=== PATIENT | male | born 1950 | race Caucasian/White ===

== ENCOUNTER 2020-05-01 12:05 | Emergency (ER) | payer MEDICARE, SELFPAY ==
--- NOTE | ~2020-05-01 | XR_ITS ---
EXAMINATION: XR finger 5th LT min 2V DATE: 05/01/2020 12:50 INDICATION: Laceration to the distal left fifth digit TECHNIQUE: Dorsal palmar, lateral and 2 oblique views of the left fifth digit were obtained COMPARISON: None FINDINGS: Alignment is normal. No fracture. Deep laceration at the distal phalanx of the left fifth digit. No e vident radiopaque foreign bodies although evaluation is minimally limited by superimposed bandaging m aterial. 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 IMPRESSION: 1. No acute osseous abnormality or evident radiopaque foreign bodies. Reviewed, dictated and finalized at location A.
[2020-05-01 12:10] VITALS: BP 146/100; PULSE 82; RESP 18; TEMP 36.4; O2SAT 100
[2020-05-01] MEDS: ceFAZolin SODIUM 1 GM VIAL IM (12:45)
[2020-05-01] MEDS: TETANUS,DIPHTHERIA,AC PERTUSSIS ADULT (0.5 ML) BOOSTRIX IM (12:45)
[2020-05-01] MEDS: LIDOCAINE HCL 1% LOCAL INJ 20 ML VIAL (12:45)
--- NOTE | 2020-05-01 13:33 | PC.NURSE ---
MICHAEL DIA AT BEDSIDE TO NUMB UP PT FINGER.
--- NOTE | 2020-05-01 14:37 | ED.WOUNDLAC ---
HPI - Wound/Laceration General Chief Complaint: Wound/Laceration <ELIESER Patrick Last Filed: 05/01/20 16:17> Stated Complaint: Left Hand Laceration <ELIESER Patrick Last Filed: 05/01/20 16:17> Time Seen by Provider: 05/01/20 12:09 <ELIESER Patrick Last Filed: 05/01/20 16:17> Source: patient <Mikael Church PA-C - Last Filed: 05/01/20 16:17> Mode of arrival: ambulatory <ELIESER Patrick Last Filed: 05/01/20 16:17> Limitations: no limitations <ELIESER Patrick Last Filed: 05/01/20 16:17> History of Present Illness HPI narrative: Patient is a 69-year-old male who presents with injury to the left fifth digit noting laceration that occurred just prior to arrival after having the finger caught in a motor that he was working on. Patient notes moderate aching pain worse with touch and activity with tingling. Patient is unsure as to tetanus status. Patient presents immediately after the injury. Patient has not had anything for pain <ELIESER Patrick Last Filed: 05/01/20 16:17> Related Data Home Medications: Home Medications Medication Instructions Recorded Confirmed aspirin 81 mg tablet,delayed 81 mg PO DAILY 08/08/19 04/10/20 release cetirizine 10 mg tablet 10 mg PO DAILY PRN tablet 08/08/19 04/10/20 lancets #50 each 08/08/19 04/10/20 loperamide 2 mg tablet 2 mg PO Q4H PRN 08/08/19 04/10/20 multivitamin 1 tablet PO DAILY 08/08/19 04/10/20 tramadol 50 mg tablet 50 mg PO Q6H PRN 08/08/19 04/10/20 vit C 250 mg-E 200 unit-zinc 40 1 tablet PO BID 08/08/19 04/10/20 mg-copper 1 [id number] capsule <ELIESER Patrick Last Filed: 05/01/20 16:17> Allergies/Adverse Reactions: Allergies Allergy/AdvReac Type Severity Reaction Status Date / Time No Known Allergies Allergy Verified 04/10/20 13:14 <Mikael Church PA-C - Last Filed: 05/01/20 16:17> Review of Systems Review of Systems: All systems reviewed & are unremarkable except as noted in HPI and below <Mikael Chruch PA-C - Last Filed: 05/01/20 16:17> [facility] Past Medical History Medical History: Medical History Bilateral exudative age-related macular degeneration Left ear impacted cerumen <Mikael Church PA-C - Last Filed: 05/01/20 16:17> Surgical History Surgical History: Surgical History History of elbow surgery History of left inguinal hernia repair right <Mikael Church PA-C - Last Filed: 05/01/20 16:17> Social History Social History: Social History Smoking status: Never smoker Second hand tobacco smoke exposure: No Alcohol intake: current Drinks per week: 4 Substance use: never Substance use type: does not use Additional occupation/education comments: owns business Gender identity (if verbalized by the patient): Male <Mikael Church PA-C - Last Filed: 05/01/20 16:17> Exam Narrative: Exam Narrative: GENERAL: Well-appearing, well-nourished, and in no acute distress. HEAD: Normocephalic, atraumatic. EYES: PERRLA and EOMI. ENT: Nares clear, no rhinorrhea or epistaxis. Mucous membranes moist. CHEST: Clear to auscultation. No respiratory distress. No wheezes rales or rhonchi HEART: Regular rate and rhythm. No murmur heard. EXTREMITIES: Normal range of motion. No edema. Patient with irregular laceration into the soft tissues and muscle involving the left pinky digit distal phalanx with considerable damage to the palmar tissues also involving the nailbed SKIN: Warm, dry, no rash. NEURO: No focal deficits. Alert and oriented x3. Neurovascularly intact. Capillary refill less than 2 seconds PSYCH: Normal mood and affect. <Mikael Church PA-C - Last Filed: 05/01/20 16:17> Course Course Emergency Course:
[2020-05-01 14:39] VITALS: BP 154/89; PULSE 82; RESP 18; O2SAT 100
--- NOTE | 2020-05-01 14:39 | PC.NURSE ---
ODILON DIA COMPLETED SUTURES W/ PT AT THIS TIME, PT INFORMED NOT TO LEAVE ED, PA WILL BE MAKING CALLS FOR PT F/U. PT VERBALIZED UNDERSTANDING, AWAITING FURTHER INSTRUCTIONS FROM ODILON.
--- NOTE | 2020-05-01 16:16 | PC.NURSE ---
VERBAL ORDER FOR X1 COP[place]AND [id number] PO STAT.
[2020-05-01 16:34] VITALS: BP 154/75; PULSE 78; RESP 18; O2SAT 100
== END 2020-05-01 16:35 | disposition home or self-care (01) ==
PROVIDERS: Emergency Provider General Practice; PCP Family Medicine
DX: S61.217A Laceration without foreign body of left little finger without damage to nail, initial encounter (principal); W31.9XXA Contact with unspecified machinery, initial encounter; Z23 Encounter for immunization
CPT/HCPCS: 12002; 73140; 90471; 90715; 96372; 99283; A9270; J0690

== ENCOUNTER 2020-06-06 13:42 | Emergency (ER) | payer MEDICARE, SELFPAY ==
--- NOTE | ~2020-06-06 | XR_ITS ---
EXAMINATION: XR finger 2nd LT min 2V EXAM DATE: 06/06/2020 14:10 INDICATION: Left hand laceration, soft tissue injury. TECHNIQUE: Left 2nd finger frontal, lateral and oblique projections obtained and reviewed. There i s no prior study for comparison. FINDINGS: Acute open posttraumatic fracture through the left 2nd tuft, with large laceration identif ied and overlying bandage. Mild posterior displacement. Aside from the bandage, no radiopaque foreign bodies identified. No other fractures. IMPRESSION: Acute open left 2nd tuft fracture. Reviewed, dictated and finalized at location A.
[2020-06-06 13:44] VITALS: BP 149/116; PULSE 88; RESP 16; TEMP 35.9; O2SAT 99
--- NOTE | 2020-06-06 14:00 | ED.WOUNDLAC ---
HPI - Wound/Laceration General Chief Complaint: Wound/Laceration Stated Complaint: left index finger injury Time Seen by Provider: 06/06/20 13:52 Source: patient Mode of arrival: ambulatory Limitations: no limitations History of Present Illness HPI narrative: This is a 69-year-old male that presents emergency department for injury to left second finger sustained just prior to arrival. Reports he was working on an outside motor and sustained a laceration to the finger. Reports he is up-to-date on tetanus. Denies decreased range of motion or numbness. Related Data Home Medications Medication Instructions Recorded Confirmed aspirin 81 mg tablet,delayed 81 mg PO DAILY 08/08/19 04/10/20 release cetirizine 10 mg tablet 10 mg PO DAILY PRN tablet 08/08/19 04/10/20 lancets #50 each 08/08/19 04/10/20 loperamide 2 mg tablet 2 mg PO Q4H PRN 08/08/19 04/10/20 multivitamin 1 tablet PO DAILY 08/08/19 04/10/20 tramadol 50 mg tablet 50 mg PO Q6H PRN 08/08/19 04/10/20 vit C 250 mg-E 200 unit-zinc 40 1 tablet PO BID 08/08/19 04/10/20 mg-copper 1 [id number] capsule Allergies Allergy/AdvReac Type Severity Reaction Status Date / Time No Known Allergies Allergy Verified 05/22/20 11:03 Review of Systems Review of Systems: Narrative: CONSTITUTIONAL: Denies fever SKIN: Reports laceration MUSCULOSKELETAL: Denies joint pain NEUROLOGIC: Denies numbness All systems reviewed & are unremarkable except as noted in HPI and below PMFSH Social History Social History Smoking status: Never smoker Second hand tobacco smoke exposure: No Alcohol intake: current Drinks per week: 4 Substance use: never Substance use type: does not use Additional occupation/education comments: owns business Gender identity (if verbalized by the patient): Male Exam Narrative: Exam Narrative: GENERAL: Well-appearing, well-nourished, and in no acute distress. HEAD: Normocephalic, atraumatic. EYES: EOMI. EXTREMITIES: Normal range of motion. No edema. Left second finger with 1.5 cm linear laceration into subcutaneous tissue over the distal phalanx. The radial side of the nailbed has been avulsed SKIN: Warm, dry, no rash. NEURO: No focal deficits. Alert and oriented x3. PSYCH: Normal mood and affect Course Consultations Consultation #1: Spoke with Dr. Villavicencio about patient work-up will follow-up in clinic. Date: 06/06/20 Time: 15:00 Vital Signs Vital signs: Vital Signs Temperature 96.6 F L 06/06/20 13:44 Pulse Rate 88 06/06/20 13:44 Respiratory Rate 16 06/06/20 13:44 Blood Pressure 149/116 H 06/06/20 13:44 Pulse Oximetry 99 06/06/20 13:44 Temperature 96.6 F L 06/06/20 13:44 Pulse Rate 88 06/06/20 13:44 Respiratory Rate 16 06/06/20 13:44 Blood Pressure 149/116 H 06/06/20 13:44 Pulse Oximetry 99 06/06/20 13:44 Procedures Laceration Laceration 1: Date: 06/06/20 Time: 15:27 Site: hand Side (If applicable): left Size (cm): 1.5 Description: linear and contaminated Depth: simple, single layer Local Anesthetic: lidocaine 1% Amount of anesthesia used (mL): 5 Pre-repair: irrigated extensively ====== Skin Level ====== Skin layer closed with: nylon Size (cm): 4-0 Number of sutures: 2 Technique: simple, interrupted ====== Subcutaneous Layer ====== Subcutaneous layer closed with: chromic gut (suture through nail to hold in place) Size: 4-0 Number of sutures: 1 ====== Muscle Layer ====== ====== Tendon Layer ====== Nerve Block Nerve Block 1: Nerve block date: 06/06/20 Nerve block time: 15:28 Local Anesthetic: lidocaine 1% Amount of anesthesia used (mL): 5 Side: left Nerve Blocks: digital Procedure Successful: Yes Patient Tolerated Procedure: well and no complicati
[2020-06-06] MEDS: ceFAZolin SODIUM 1 GM VIAL IM (14:39)
[2020-06-06] MEDS: LIDOCAINE HCL 1% LOCAL INJ 20 ML VIAL (14:39)
[2020-06-06 15:38] VITALS: BP 134/69; PULSE 75; RESP 16; O2SAT 100
== END 2020-06-06 15:39 | disposition home or self-care (01) ==
PROVIDERS: Emergency Provider Emergency Medicine; PCP Family Medicine
DX: S62.631B Displaced fracture of distal phalanx of left index finger, initial encounter for open fracture (principal); Z79.82 Long term (current) use of aspirin; W26.8XXA Contact with other sharp object(s), not elsewhere classified, initial encounter
CPT/HCPCS: 12041; 29130; 73140; 96372; 99284; J0690

== ENCOUNTER 2020-08-01 11:21 | Emergency (ER) | payer MEDICARE, SELFPAY ==
--- NOTE | ~2020-08-01 | XR_ITS ---
XR chest 1V portable DATE: 08/01/2020 12:10 INDICATION: Chest pain, difficulty breathing TECHNIQUE: 2 portable AP chest views on 08/01/2020 at 1210 hours COMPARISON: None FINDINGS: Heart size is likely within normal range, not optimally evaluated on AP projection because of magnification. Probable calcified pulmonary granuloma, right upper lobe. No pulmonary consolidation is evident. Mini mal atelectasis is suggested at the lung bases. No pleural effusion or pulmonary vascular congestion or pneumothorax. IMPRESSION: Limited portable examination; minimal atelectasis is suggested at the lung bases Reviewed, dictated and finalized at location A. [facility] IMPRESSION: Limited portable examination; minimal atelectasis is suggested at t he lung bases
[2020-08-01 11:30] VITALS: BP 127/117; PULSE 67; RESP 18; TEMP 36.8; O2SAT 100
--- NOTE | 2020-08-01 11:51 | ED.GENADULT ---
HPI - General Adult General Chief complaint: Fever Stated complaint: temp 99.9/st/fatigue Time Seen by Provider: 08/01/20 11:23 Source: patient Mode of arrival: ambulatory Limitations: no limitations History of Present Illness HPI narrative: Patient is a 70-year-old male who presents with runny nose congestion and fever that began over the last 24 hours denies sick contacts has not taken anything for his symptoms presents in no distress Related Data Home Medications Medication Instructions Recorded Confirmed aspirin 81 mg tablet,delayed 81 mg PO DAILY 08/08/19 04/10/20 release cetirizine 10 mg tablet 10 mg PO DAILY PRN tablet 08/08/19 04/10/20 lancets #50 each 08/08/19 04/10/20 loperamide 2 mg tablet 2 mg PO Q4H PRN 08/08/19 04/10/20 multivitamin 1 tablet PO DAILY 08/08/19 04/10/20 tramadol 50 mg tablet 50 mg PO Q6H PRN 08/08/19 04/10/20 vit C 250 mg-E 200 unit-zinc 40 1 tablet PO BID 08/08/19 04/10/20 mg-copper 1 [id number] capsule Allergies Allergy/AdvReac Type Severity Reaction Status Date / Time No Known Allergies Allergy Verified 05/22/20 11:03 Review of Systems Review of Systems: All systems reviewed & are unremarkable except as noted in HPI and below PMFSH Past Medical History Medical History (Updated 08/01/20 @ 14:15 by Mikael Church PA-C) Bilateral exudative age-related macular degeneration Left ear impacted cerumen Surgical History Surgical History History of elbow surgery History of left inguinal hernia repair right Family History Family History Mother Diabetes mellitus Family history of cardiovascular disease Sibling Family history of cardiovascular disease Father Family history of primary malignant neoplasm of liver Social History Social History Smoking status: Never smoker Second hand tobacco smoke exposure: No Alcohol intake: current Drinks per week: 4 Substance use: never Substance use type: does not use Additional occupation/education comments: owns business Gender identity (if verbalized by the patient): Male Exam Narrative: Exam Narrative: GENERAL: Well-appearing, well-nourished, and in no acute distress. HEAD: Normocephalic, atraumatic. EYES: PERRLA and EOMI. ENT: Nares clear, no rhinorrhea or epistaxis. Mucous membranes moist. Oropharynx without tonsillar hypertrophy exudate or other lesions. NECK: Supple. No adenopathy or masses. CHEST: Clear to auscultation. No respiratory distress. No wheezes rales or rhonchi HEART: Regular rate and rhythm. No murmur heard. Normal peripheral pulses. ABDOMEN: Soft, mild left lower quadrant tenderness to palpation, nondistended, normal active bowel sounds. EXTREMITIES: Normal range of motion. No edema. SKIN: Warm, dry, no rash. NEURO: No focal deficits. Alert and oriented x3. Cranial nerves II through XII grossly intact PSYCH: Normal mood and affect. Course Course Emergency Course: Patient in the room at this time resting comfortably nontoxic afebrile will be discharged home advised to self quarantine pending Covid results patient agrees to this plan patient had chest x-ray and blood work with no high risk changes felt appropriate for discharge home patient agrees with this plan patient will contact primary care tomorrow patient also provided with reasons to return Vital Signs Vital signs: Vital Signs Temperature 98.3 F 08/01/20 11:30 Pulse Rate 67 08/01/20 11:30 Respiratory Rate 18 08/01/20 11:30 Blood Pressure 127/117 H 08/01/20 11:30 Pulse Oximetry 100 08/01/20 11:30 Temperature 98.3 F 08/01/20 11:30 Pulse Rate 67 08/01/20 13:00 Respiratory Rate 18 08/01/20 13:00 Blood Pressure 123/69 08/01/20 13:00 Pulse Oximetry 99 08/01/20 13:00 Medical Decision Making [facility]
[2020-08-01 13:00] VITALS: BP 123/69; PULSE 67; RESP 18; O2SAT 99
[2020-08-01] MEDS: FAMOTIDINE 20 MG/2 ML VIAL IV PUSH (13:02)
[2020-08-01] MEDS: SODIUM CHLORIDE 0.9% IV 1,000 ML 999 ML IV CONT (13:02)
[2020-08-01 13:22] LABS: Basophils Absolute Auto 0.1 K/mm3 (0.0-0.1); Eosinophils Absolute Auto 0.2 K/mm3 (0-0.3); Eosinophils Percent Auto 2.5 % (0-4.4); Hemoglobin 14.5 g/dL (14.0-18.0); Immature Granulocyte Absolute 0.02 K/mm3 (0.00-0.031); Immature Granulocyte Percent A 0.3 % (0-0.5); Lymphocytes Absolute Auto 2.79 K/mm3 (0.9-3.2); Lymphocytes Percent Auto 36.4 % (18.3-44.2); Mean Corpuscular HGB Conc 34.5 g/dl (32-36); Mean Corpuscular Hemoglobin 31.6 pg (26-34); Mean Corpuscular Volume 91.5 fl (80-100); Mean Platelet Volume 11.1 fl (7.4-10.4); Monocytes Absolute Auto 0.8 K/mm3 (0.1-0.6); Monocytes Percent Auto 10.8 % (2.6-8.5); Neutrophils Absolute Auto 3.8 K/mm3 (1.3-6.7); Platelet Count Result 179 k/mm3 (150-375); Red Blood Count 4.59 M/mm3 (4.6-6.20); White Blood Count 7.7 K/mm3 (4.5-10.0)
[2020-08-01 13:32] LABS: Lactic Acid Reflex 1.6 mmol/L (0.7-2.1)
[2020-08-01 13:33] LABS: Lipase 132 U/L (23-300)
[2020-08-01 13:38] LABS: Alanine Aminotransferase 48 U/L (4-50); Albumin Level 3.9 g/dL (3.5-5.1); Alkaline Phosphatase 84 U/L (38-126); Anion Gap 8 mmol/L (8-16); Aspartate Amino Transferase 47 U/L (17-59); Blood Urea Nitrogen 18 mg/dL (9-20); CRP 0.6 mg/dL (<1.0); Calcium 8.8 mg/dL (8.4-10.2); Carbon Dioxide 28 mmol/L (22-30); Chloride 103 mmol/L (98-107); Estimated CRCL calculation 93 ml/min; Estimated Glomerular Filt Rate > 60; Glucose 192 mg/dL (75-110); Potassium 4.3 mmol/L (3.4-5.0); Sodium 139 mmol/L (137-145)
[2020-08-01 13:53] LABS: Add Urine Microscopic? YES; Appearance Urine Clear (Clear); Bilirubin Urine Negative (Negative); Blood Urine Negative (Negative); Color Urine Yellow (Yellow); Glucose Urine UA Negative (Negative); Ketones Urine Negative (Negative); Leukocyte Esterase Ur Negative LEU/UL (Negative); Mucus Urine Rare /lpf; Nitrate Urine Negative (Negative); Protein Urine Negative (Negative); RBC Urine 0-2 /hpf (0-2); Specific Grav Ur 1.015 (1.001-1.035); WBC Urine 0-3 /hpf
[2020-08-01 13:56] LABS: Prothrombin Time 13.8 Seconds (11.1-14.7)
[2020-08-01 13:57] LABS: Partial Thromboplastin Time 25.9 SECONDS (22.3-36.8)
[2020-08-01 14:27] VITALS: BP 117/78; PULSE 78; RESP 20; O2SAT 99
[2020-08-02 17:05] LABS: SARS-CoV-2 RNA PCR Negative
== END 2020-08-01 14:33 | disposition home or self-care (01) ==
PROVIDERS: Emergency Medicine Emergency Medical Services; Emergency Provider Emergency Medicine; PCP Family Medicine
DX: J06.9 Acute upper respiratory infection, unspecified (principal); Z20.828 Contact with and (suspected) exposure to other viral communicable diseases; Z79.82 Long term (current) use of aspirin
CPT/HCPCS: 36415; 71045; 80053; 81001; 83605; 83690; 85025; 85610; 85730; 86140; 87040; 87081; 87635; 87880; 96361; 96365; 96375; 99284; C9803; J0131; J7030; U0003

== ENCOUNTER 2020-12-17 09:25 | Outpatient (CLI) | payer MEDICARE, SELFPAY | END 2020-12-17 09:26 | disposition home or self-care (01) | LOC: ANHCOVIDVC 09:25 | PROVIDERS: PCP Family Medicine | DX: Z23 Encounter for immunization (principal) | CPT/HCPCS: 0001A; 91300 ==

== ENCOUNTER 2021-01-07 09:17 | Outpatient (CLI) | payer MEDICARE, SELFPAY | END 2021-01-07 09:18 | LOC: ANHCOVIDVC 09:17 | PROVIDERS: PCP Family Medicine | DX: Z23 Encounter for immunization (principal) | CPT/HCPCS: 0002A; 91300 ==

== ENCOUNTER 2021-06-06 18:42 | Emergency (ER) | payer MEDICARE, SELFPAY ==
--- NOTE | ~2021-06-06 | XR_ITS ---
EXAMINATION: XR chest 2V DATE: 06/06/2021 19:15 INDICATION: Left-sided chest pain TECHNIQUE: PA and lateral views of the chest are obtained. COMPARISON: 08/01/2020 FINDINGS: There are minimal opacities of the lung bases. There is no pleural effusion or pneumothorax . The cardiomediastinal silhouette is normal. There is moderate thoracic spondylosis. IMPRESSION: 1. Minimal bibasilar opacities, consistent with atelectasis versus pneumonia. Reviewed, dictated and finalized at location A.
--- NOTE | 2021-06-06 18:44 | ECG_ITS ---
Measurements Intervals [place] Rate: 75 P: -28 GA: 193 QRS: -30 QRSD: 153 T: -26 QT: 413 QTc: 463 Interpretive Statements SINUS RHYTHM RIGHT BUNDLE BRANCH BLOCK CONSIDER INFERIOR INFARCT, AGE INDETERMINATE BASELINE ARTIFACT- I, II, III ABNORMAL ECG Electronically Signed On 06-06-2021 19:17:12 CDT by Maninder Kramer D.O.
[2021-06-06 19:00] VITALS: BP 122/100; PULSE 72; RESP 14; TEMP 36.8; O2SAT 99
[2021-06-06 19:09] LABS: Basophils Absolute Auto 0.1 K/mm3 (0.0-0.1); Basophils Percent Auto 1.3 % (0.2-1.2); Eosinophils Absolute Auto 0.5 K/mm3 (0-0.3); Eosinophils Percent Auto 5.4 % (0-4.4); Hematocrit 40.2 % (42.0-52.0); Hemoglobin 13.9 g/dL (14.0-18.0); Immature Granulocyte Absolute 0.02 K/mm3 (0.00-0.031); Immature Granulocyte Percent A 0.2 % (0-0.5); Lymphocytes Absolute Auto 2.68 K/mm3 (0.9-3.2); Lymphocytes Percent Auto 31.3 % (18.3-44.2); Mean Corpuscular HGB Conc 34.6 g/dl (32-36); Mean Corpuscular Hemoglobin 31.9 pg (26-34); Mean Corpuscular Volume 92.2 fl (80-100); Mean Platelet Volume 10.4 fl (7.4-10.4); Monocytes Absolute Auto 1.1 K/mm3 (0.1-0.6); Monocytes Percent Auto 12.9 % (2.6-8.5); Neutrophils Absolute Auto 4.2 K/mm3 (1.3-6.7); Neutrophils Percent Auto 48.9 % (45.5-73.1); Platelet Count Result 162 k/mm3 (150-375); Red Blood Count 4.36 M/mm3 (4.6-6.20); Red Cell Distribution Width 12.2 % (11.5-14.5); White Blood Count 8.6 K/mm3 (4.5-10.0)
[2021-06-06 19:14] LABS: Prothrombin Time 13.1 Seconds (11.1-14.7)
[2021-06-06 19:15] LABS: Partial Thromboplastin Time 25.4 SECONDS (22.3-36.8)
[2021-06-06 19:16] LABS: Anion Gap 12 mmol/L (8-16); Blood Urea Nitrogen 24 mg/dL (9-20); Calcium 9.2 mg/dL (8.4-10.2); Carbon Dioxide 21 mmol/L (22-30); Chloride 109 mmol/L (98-107); Estimated CRCL calculation 75 ml/min; Estimated Glomerular Filt Rate > 60; Glucose 130 mg/dL (65-110); Potassium 4.1 mmol/L (3.4-5.0); Sodium 142 mmol/L (137-145)
[2021-06-06 19:27] LABS: Troponin I < 0.012 ng/mL (0.000-0.034)
[2021-06-06 22:37] VITALS: BP 142/79; PULSE 72; RESP 19; O2SAT 99
[2021-06-06 22:59] LABS: Troponin I < 0.012 ng/mL (0.000-0.034)
[2021-06-06] MEDS: valACYclovir HCL 500 MG TABLET 1000 MG PO (23:25)
--- NOTE | 2021-06-06 23:26 | ED.CHESTPAIN ---
HPI - Chest Pain General Chief Complaint: Chest Pain Stated Complaint: CHEST PAIN X3D Time Seen by Provider: 06/06/21 22:25 Source: patient Mode of arrival: ambulatory Limitations: no limitations History of Present Illness HPI narrative: 70-year-old male History of diabetes, hypertension, GERD Here for evaluation of chest pain Patient notes pains radiating across the mid left chest towards the shoulder over the last 3 days They are sharp, severe, fleeting, and not triggered by anything that he is aware of No associated shortness of breath, palpitations, nausea, diaphoresis Related Data Home Medications Medication Instructions Recorded Confirmed aspirin 81 mg tablet,delayed 81 mg PO DAILY 08/08/19 06/04/21 release cetirizine 10 mg tablet 10 mg PO DAILY PRN tablet 08/08/19 06/04/21 loperamide 2 mg tablet 2 mg PO Q4H PRN 08/08/19 06/04/21 multivitamin 1 tablet PO DAILY 08/08/19 06/04/21 tramadol 50 mg tablet 50 mg PO Q6H PRN 08/08/19 06/04/21 vit C 250 mg-vit E 90 mg-zinc 40 1 tablet PO BID 08/08/19 06/04/21 mg-copper 1 [id number] capsule Allergies Allergy/AdvReac Type Severity Reaction Status Date / Time metformin AdvReac Mild Diarrhea Verified 06/06/21 22:41 Review of Systems Review of Systems: All systems reviewed & are unremarkable except as noted in HPI and below Constitutional: Constitutional: Reports no additional constitutional complaints, Denies chills, Denies fatigue, Denies fever(s), Denies headache(s) and Denies weakness Eyes: Eyes: Reports no additional eye complaints and Denies change in vision ENT: Denies headache(s) and Denies sore throat Cardiovascular: Cardiovascular: Reports chest pain, Reports radiating jaw, neck or arm pain and Denies dyspnea Respiratory: Respiratory: Denies cough and Denies dyspnea Gastrointestinal: Gastrointestinal: Denies abdominal pain, Denies diarrhea and Denies vomiting Genitourinary: Genitourinary: Denies dysuria and Denies urinary frequency Musculoskeletal: Musculoskeletal: Denies myalgias, Denies deformity, Denies arthralgias, Denies joint swelling and Denies numbness Integumentary/Breasts: Skin/Breast: Reports erythema, Reports rash and Denies wounds Neurologic: Denies headache(s), Denies focal weakness and Denies numbness Psychiatric: Psychiatric: Reports no additional psychiatric complaints Endocrine: Endocrine: Reports no additional endocrine complaints Hematologic/Lymphatic: Hematologic/Lymphatic: Reports no additional hematologic/lymphatic complaints Allergic/Immunologic: Allergic/Immunologic: Reports no additional allergic/immunologic complaints [facility] Past Medical History Medical History (Updated 06/06/21 @ 23:34 by Gio Paulino MD) Bilateral exudative age-related macular degeneration Left ear impacted cerumen Obesity Surgical History Surgical History History of elbow surgery History of left inguinal hernia repair right Family History Family History Mother Diabetes mellitus Family history of cardiovascular disease Sibling Family history of cardiovascular disease Father Family history of primary malignant neoplasm of liver Social History Social History (Updated 06/04/21 @ 09:51 by Myah Forman) Smoking status: Never smoker Second hand tobacco smoke exposure: No Alcohol intake: current Drinks per week: 4 Substance use: never Substance use type: does not use Additional occupation/education comments: owns business Gender identity (if verbalized by the patient): Male Sexual Orientation (if Verbalized by the Patient): Straight or Heterosexual Exam Const: General: cooperative, healthy appearing, no acute distress and alert Orientation/consciousness: patient oriented x3 (alert) HENMT: Head: normal to inspection, normocephalic and atraumatic Ears: external ears normal G
[2021-06-06 23:55] VITALS: BP 168/78; PULSE 76; RESP 15; O2SAT 98
== END 2021-06-06 23:54 | disposition home or self-care (01) ==
LOC: ANHED 23:38
PROVIDERS: Emergency Provider Emergency Medicine; PCP Family Medicine
DX: B02.9 Zoster without complications (principal); E11.9 Type 2 diabetes mellitus without complications; I10 Essential (primary) hypertension; K21.9 Gastro-esophageal reflux disease without esophagitis; H35.3230 Exudative age-related macular degeneration, bilateral, stage unspecified; E66.9 Obesity, unspecified; Z68.30 Body mass index [BMI] 30.0-30.9, adult; Z79.82 Long term (current) use of aspirin; Z79.4 Long term (current) use of insulin; R91.8 Other nonspecific abnormal finding of lung field
CPT/HCPCS: 36415; 71046; 80048; 84484; 85025; 85610; 85730; 93005; 99284; A9270

== ENCOUNTER 2021-11-24 02:04 | Day surgery (SDC) | payer MEDICARE, SELFPAY ==
[2021-11-13 10:16] VITALS: BMI 30.5
--- NOTE | 2021-11-22 12:40 | WPDANESEPPF ---
Anes - Initial Pre Proc Eval Procedure: Operation Date: 11/24/21 11:30 Proposed Procedures p Screening Colonoscopy - Gio Figueroa MD Date/Time: 11/22/21 12:40 Surgeon: Gio Figueroa MD Pre Op Diagnosis: hx of colon polyps Patient Data Age: 71 Gender: M Height: 1.85 m Weight: 105 kg Allergies Allergy/AdvReac Type Severity Reaction Status Date / Time metformin AdvReac Mild Diarrhea Verified 11/24/21 10:08 Home Medications Medication Instructions Recorded Confirmed Type cetirizine 10 mg tablet 10 mg PO QPM tablet 08/08/19 11/13/21 History loperamide 2 mg tablet 2 mg PO Q4H 08/08/19 11/13/21 History multivitamin 1 tablet PO DAILY 08/08/19 11/13/21 History vit C 250 mg-vit E 90 mg-zinc 40 1 tablet PO BID 08/08/19 11/13/21 History mg-copper 1 [id number] capsule atorvastatin 40 mg tablet 40 mg PO DAILY #90 tablet 08/22/20 11/13/21 Rx pen needle, diabetic 32 gauge x #90 each 08/28/20 10/14/21 Rx /32 blood sugar diagnostic #100 ea 11/29/20 10/14/21 Rx blood-glucose meter #1 ea 11/29/20 10/14/21 Rx lancets #100 ea 11/29/20 10/14/21 Rx metoprolol succinate 50 mg 50 mg PO DAILY #90 tablet 06/20/21 11/13/21 Rx tablet,extended release 24 hr alcohol swabs 1 pad TOPICAL .qd #200 ea 07/29/21 11/13/21 Rx lancets #100 ea 07/30/21 10/14/21 Rx lancets #100 ea 08/04/21 10/14/21 Rx dulaglutide 1.5 mg/0.5 mL 1.5 mg SUBCUT WEEKLY #6 ml 10/14/21 11/13/21 Rx subcutaneous pen injector amlodipine 10 mg PO QPM 11/13/21 11/13/21 History glipizide 5 mg PO BID 11/13/21 11/13/21 History insulin glargine [Lantus Solostar 70 unit SUB-Q QPM 11/13/21 11/13/21 History U-100 Insulin] lisinopril 40 mg PO QPM 11/13/21 11/13/21 History omeprazole 20 mg PO QPM 11/13/21 11/13/21 History sertraline 100 mg PO QPM 11/13/21 11/13/21 History Patient hx anesthesia problems: none Family hx anesthesia problems: none Results Review: All pre-operative results and documents have been reviewed as part of the pre-operative evaluation. [facility] Past Medical History Medical History (Updated 11/24/21 @ 10:47 by Gio Figueroa MD) Bilateral exudative age-related macular degeneration Essential hypertension Hyperlipidemia IBS (irritable bowel syndrome) Left ear impacted cerumen Obesity LEI (obstructive sleep apnea) CPAP Type 2 diabetes mellitus without complication, with long-term current use of insulin Surgical History Surgical History History of elbow surgery History of left inguinal hernia repair right Family History Family History Mother Diabetes mellitus Family history of cardiovascular disease Sibling Family history of cardiovascular disease Father Family history of primary malignant neoplasm of liver Social History Social History Smoking status: Never smoker Second hand tobacco smoke exposure: No Alcohol intake: current Drinks per week: 3 Substance use: never Substance use type: does not use Living arrangements: with family Additional occupation/education comments: owns business Gender identity (if verbalized by the patient): Male Sexual Orientation (if Verbalized by the Patient): Straight or Heterosexual Spiritual care concerns: No Anes - Eval Final PreProcedure Day of Procedure 11/22/21 12:40 Patient weight: overweight Heart: regular rate and rhythm Lungs: clear to auscultation and normal air movement Airway: Mallampati scale class II Neurological: alert and oriented Last oral intake: >/= 8 hours ASA classification: III Emergent: no Anesthetic plan: proceed Anesthesia type and monitoring: general GIVS and standard monitoring Results Review: All pre-operative results and documents have been reviewed as part of the pre-operative evaluation. Informed Consent: The patient's anesthetic plan and its attendant r
[2021-11-24 10:09] VITALS: BP 126/75; PULSE 67; RESP 18; TEMP 36.6; O2SAT 94
[2021-11-24] MEDS: LACTATED RINGERS 1,000 ML 150 ML IV CONT (10:23)
--- NOTE | 2021-11-24 10:45 | WPDGICN ---
Assessment and Plan Assessment and plan (1) History of colon polyps: Code(s): Z86.010 - Personal history of colonic polyps Status: Acute Assessment and Plan: Patient has a history of colon polyps described in 2016 performed at an outlying hospital. Plan is for surveillance colonoscopy at this time. Further recommendations will be given after endoscopy. (2) Diarrhea: Code(s): R19.7 - Diarrhea, unspecified Status: Acute Assessment and Plan: Patient has ongoing diarrhea. Likely related to his diabetes this will be reassessed at the time of endoscopy. Currently he uses loperamide. Suggest adding fiber contact [place] on a daily basis. (3) Type 2 diabetes mellitus without complication, with long-term current use of insulin: Code(s): E11.9 - Type 2 diabetes mellitus without complications; Z79.4 - senior living (current) use of insulin Status: Acute GI Consult Note Consult date/time: 11/24/21 10:45 HPI: Saran Paz is a 71 year old male Presents for screening colonoscopy. Patient reports having had colon polyps in 2016 performed at a different institution. Patient presents today for surveillance colonoscopy. Patient reports he has ongoing diarrhea and loose stools. He has a history of diabetes. Five years ago was on metformin in the subsequently was discontinued because of diet [place]. He currently takes loperamide daily because of loose stools. He describes oily stools as well. He does take a fiber cereal daily. Family history is noncontributory. Patient denies any weight loss or bleeding. Review of Systems Review of Systems: All systems reviewed & are unremarkable except as noted in HPI and below PMFSH Past Medical History Medical History (Updated 11/24/21 @ 10:47 by Gio Figueroa MD) Bilateral exudative age-related macular degeneration Essential hypertension Hyperlipidemia IBS (irritable bowel syndrome) Left ear impacted cerumen Obesity LEI (obstructive sleep apnea) CPAP Type 2 diabetes mellitus without complication, with long-term current use of insulin Surgical History Surgical History History of elbow surgery History of left inguinal hernia repair right Family History Family History Mother Diabetes mellitus Family history of cardiovascular disease Sibling Family history of cardiovascular disease Father Family history of primary malignant neoplasm of liver Social History Social History Smoking status: Never smoker Second hand tobacco smoke exposure: No Alcohol intake: current Drinks per week: 3 Substance use: never Substance use type: does not use Living arrangements: with family Additional occupation/education comments: owns business Gender identity (if verbalized by the patient): Male Sexual Orientation (if Verbalized by the Patient): Straight or Heterosexual Spiritual care concerns: No Meds Home Medications and Allergies Home Medications Medication Instructions Recorded Confirmed Type cetirizine 10 mg tablet 10 mg PO QPM tablet 08/08/19 11/13/21 History loperamide 2 mg tablet 2 mg PO Q4H 08/08/19 11/13/21 History multivitamin 1 tablet PO DAILY 08/08/19 11/13/21 History vit C 250 mg-vit E 90 mg-zinc 40 1 tablet PO BID 08/08/19 11/13/21 History mg-copper 1 [id number] capsule atorvastatin 40 mg tablet 40 mg PO DAILY #90 tablet 08/22/20 11/13/21 Rx pen needle, diabetic 32 gauge x #90 each 08/28/20 10/14/21 Rx / blood sugar diagnostic #100 ea 11/29/20 10/14/21 Rx blood-glucose meter #1 ea 11/29/20 10/14/21 Rx lancets #100 ea 11/29/20 10/14/21 Rx metoprolol succinate 50 mg 50 mg PO DAILY #90 tablet 06/20/21 11/13/21 Rx tablet,extended release 24 hr alcohol swabs 1 pad TOPICAL .qd #200 ea 07/29/21 11/13/21 Rx lancets #100 ea 1
[2021-11-24 10:53] LABS: Glucose Point of Care 143 mg/dl (65-105)
[2021-11-24 11:14] VITALS: BP 83/59; PULSE 75; RESP 18; O2SAT 92
[2021-11-24 11:24] VITALS: BP 99/66; PULSE 72; RESP 23; O2SAT 98
[2021-11-24 11:33] LABS: Glucose Point of Care 117 mg/dl (65-105)
== END 2021-11-24 11:44 | disposition home or self-care (01) ==
PROVIDERS: PCP Family Medicine; Visit Provider Internal Medicine Gastroenterology
PROC: 0DJD8ZZ Inspection of Lower Intestinal Tract, Via Natural or Artificial Opening Endoscopic (ICD-10-PCS; CPT 45378; principal; 2021-11-24 11:30)
DX: Z12.11 Encounter for screening for malignant neoplasm of colon (principal); D12.2 Benign neoplasm of ascending colon; K63.5 Polyp of colon; K58.0 Irritable bowel syndrome with diarrhea; K57.30 Diverticulosis of large intestine without perforation or abscess without bleeding; I10 Essential (primary) hypertension; E78.5 Hyperlipidemia, unspecified; E11.9 Type 2 diabetes mellitus without complications; G47.33 Obstructive sleep apnea (adult) (pediatric); H35.3230 Exudative age-related macular degeneration, bilateral, stage unspecified; Z79.899 Other long term (current) drug therapy; Z79.4 Long term (current) use of insulin
CPT/HCPCS: 45385; 82948; 88305; J2704; J7120

== ENCOUNTER 2022-11-06 12:58 | Emergency (ER) | payer MEDICARE, SELFPAY ==
[2022-11-06] VITALS (14 sets, daily range): BP systolic 110–144; BP diastolic 71–78; PULSE 79–83; RESP 16–19; TEMP 36.5–36.6; O2SAT 98–100
--- NOTE | ~2022-11-06 | CT_ITS ---
EXAMINATION: CT abdomen pelvis w con INDICATION: Vomiting and abdominal distention TECHNIQUE: Computed tomographic images of the abdomen and pelvis were obtained after the administrati on of 100 cc of Omnipaque 350 intravenous contrast. The dose-length product (DLP) was 1121.51 mGy-cm. Automated exposure control and iterative reconstruction technique were employed. COMPARISON: None available FINDINGS: Minimal dependent atelectasis is present in the lung bases. The heart size is normal. Calci fied pleural plaques are noted which can be seen in the setting of prior asbestos exposure. There is a small sliding hiatal hernia. There is a 5 mm nodule of the left lower lobe. The liver, spleen, panc reas, gallbladder, and right adrenal gland are normal. There is a 10 mm mass of the left adrenal glan d. Cysts of the kidneys measure up to 3.5 cm on the right. There is a 2 mm nonobstructing stone of th e left kidney. No pathologically enlarged abdominal or pelvic lymph nodes are identified. Colonic div erticulosis is present without evidence of diverticulitis. The appendix is normal. IMPRESSION: 1. No CT correlate for the patient's symptoms. 2. 5 mm nodule of the left lower lobe. Consider follow-up CT in 12 months. 3. 10 mm left adrenal mass, likely an adenoma. Consider follow-up adrenal CT in 12 months. Reviewed, dictated and finalized at location F. ICAL THERAPIST TECHNICIAN
--- NOTE | ~2022-11-06 | XR_ITS ---
EXAMINATION: XR chest 2V DATE: 11/06/2022 19:49 INDICATION: Cough TECHNIQUE: PA and lateral views of the chest are obtained. COMPARISON: 06/06/2021 FINDINGS: The lungs are free of acute opacities. Calcified pleural plaques are noted. No pleural effu willard or pneumothorax. The cardiomediastinal silhouette is normal. There is moderate thoracic spondylo sis. IMPRESSION: 1. No acute cardiopulmonary abnormality. Reviewed, dictated and finalized at location F. ESTATE ADMINISTRATOR
[2022-11-06 15:32] LABS: Basophils Percent Auto 0.1 % (0.2-1.2); Eosinophils Absolute Auto 0.1 K/mm3 (0-0.3); Eosinophils Percent Auto 0.7 % (0-4.4); Hemoglobin 15.7 g/dL (14.0-18.0); Immature Granulocyte Absolute 0.06 K/mm3 (0.00-0.031); Immature Granulocyte Percent A 0.5 % (0-0.5); Lymphocytes Absolute Auto 1.23 K/mm3 (0.9-3.2); Lymphocytes Percent Auto 10.3 % (18.3-44.2); Mean Corpuscular HGB Conc 34.1 g/dl (32-36); Mean Corpuscular Hemoglobin 31.7 pg (26-34); Mean Corpuscular Volume 92.7 fl (80-100); Mean Platelet Volume 10.8 fl (7.4-10.4); Monocytes Absolute Auto 0.8 K/mm3 (0.1-0.6); Neutrophils Absolute Auto 9.7 K/mm3 (1.3-6.7); Neutrophils Percent Auto 81.4 % (45.5-73.1); Platelet Count Result 212 k/mm3 (150-375); Red Blood Count 4.96 M/mm3 (4.6-6.20); Red Cell Distribution Width 12.8 % (11.5-14.5); White Blood Count 11.9 K/mm3 (4.5-10.0)
[2022-11-06 15:39] LABS: Appearance Urine Clear (Clear); Bacteria Urine None Seen /hpf; Bilirubin Urine Negative (Negative); Blood Urine Negative (Negative); Color Urine Yellow (Yellow); Glucose Urine UA 3+ mg/dL (Negative); Ketones Urine Negative (Negative); Leukocyte Esterase Ur Negative LEU/UL (Negative); Nitrate Urine Negative (Negative); Non Pathogenic Casts 0-2; Protein Urine 1+ mg/dL (Negative); RBC Urine 0-2 /hpf (0-2); Squamous Epithelial Cell Urine None seen /hpf (Few); Urobilinogen Urine 0.2 mg/dL (<2.0); WBC Urine 0-5 /hpf; pH Urine 5.5 (5.0-9.0)
[2022-11-06 15:41] LABS: Alanine Aminotransferase 38 U/L (6-50); Albumin Level 4.8 g/dL (3.5-5.1); Alkaline Phosphatase 90 U/L (38-126); Anion Gap 9 mmol/L (8-16); Aspartate Amino Transferase 39 U/L (17-59); Bilirubin,Total 1.3 mg/dL (0.2-1.3); Blood Urea Nitrogen 26 mg/dL (9-20); Calcium 9.5 mg/dL (8.4-10.2); Carbon Dioxide 22 mmol/L (22-30); Chloride 111 mmol/L (98-107); Estimated CRCL calculation 81 ml/min; Estimated Glomerular Filt Rate > 60; Glucose 153 mg/dL (65-110); Lipase 103 U/L (23-300); Sodium 142 mmol/L (137-145)
[2022-11-06 15:43] LABS: Specific Grav Ur 1.041 (1.001-1.035)
[2022-11-06 15:44] LABS: Add Urine Microscopic? YES
[2022-11-06 17:34] LABS: Glucose Point of Care 110 mg/dl (65-105)
--- NOTE | 2022-11-06 19:01 | ED.NAVMDI ---
HPI - Nausea/Vomiting/Diarrhea General Chief complaint: Nausea/Vomiting/Diarrhea Stated complaint: vomiting/diarrhea Time Seen by Provider: 11/06/22 18:48 History of Present Illness HPI Narrative: 72-year-old male with a history of LEI, type 2 diabetes, hypertension, hyperlipidemia reports for nausea, vomiting, diarrhea since 0400 this morning. Patient reports during the middle of the night last night, he developed nausea. States he has had 7 episodes of diarrhea since the onset of symptoms and 2 episodes of vomiting. He reports he has not been able to eat or drink much secondary to nausea. Patient is reporting abdominal distention, no pain. Patient also reports he developed a cough today. Denies fever, body aches, back pain, headache, vision changes, focal numbness or weakness. He denies urinary complaints, melena, hematochezia, hemoptysis, chest pain, shortness of breath. Patient reports he has an appointment with his primary care this upcoming week. He is currently being seen by an nutrient management specialist for diabetes management. Related Data Home Medications Medication Instructions Recorded Confirmed cetirizine 10 mg tablet 10 mg PO QPM 08/08/19 07/09/22 loperamide 2 mg tablet 2 mg PO Q4H 08/08/19 07/09/22 (Anti-Diarrheal (loperamide)) multivitamin 1 tablet PO DAILY 08/08/19 07/09/22 vit C 250 mg-vit E 90 mg-zinc 40 1 tablet PO BID 08/08/19 07/09/22 mg-copper 1 [id number] capsule (PreserVision AREDS-2) omeprazole 20 mg capsule,delayed 20 mg PO QPM 11/13/21 07/09/22 release Allergies Allergy/AdvReac Type Severity Reaction Status Date / Time metformin AdvReac Mild Diarrhea Verified 11/06/22 19:19 Review of Systems Review of Systems: CONSTITUTIONAL: Denies fever, chills EYES: Denies visual changes, redness, or discharge. ENT: Denies rhinorrhea, congestion, sore throat, or otalgia. CARDIOVASCULAR: Denies chest pain, palpitations, or edema. RESPIRATORY: Denies dyspnea. GASTROINTESTINAL: See HPI GENITOURINARY: Denies dysuria or hematuria. SKIN: Denies rash or itching. MUSCULOSKELETAL: Denies back pain, joint pain, or myalgia. NEUROLOGIC: Denies headache, numbness, dizziness, or weakness. PSYCHIATRIC: Denies anxiety or depression. [facility] Past Medical History Medical History Bilateral exudative age-related macular degeneration Essential hypertension Hyperlipidemia IBS (irritable bowel syndrome) Left ear impacted cerumen Obesity LEI (obstructive sleep apnea) CPAP Type 2 diabetes mellitus without complication, with long-term current use of insulin Surgical History Surgical History History of elbow surgery History of left inguinal hernia repair right Family History Family History Mother Diabetes mellitus Family history of cardiovascular disease Sibling Family history of cardiovascular disease Father Family history of primary malignant neoplasm of liver Social History Social History Smoking status: Never smoker Second hand tobacco smoke exposure: No Alcohol intake: current Drinks per week: 3 Substance use: never Substance use type: does not use Living arrangements: with family Occupation/Education: occupation Additional occupation/education comments: owns [employer] Gender identity (if verbalized by the patient): Male Sexual Orientation (if Verbalized by the Patient): Straight or Heterosexual Spiritual care concerns: No Exam Narrative: GENERAL: Well-appearing, well-nourished, and in no acute distress. HEAD: Normocephalic, atraumatic. EYES: PERRLA and EOMI. ENT: Nares clear, no rhinorrhea or epistaxis. Mucous membranes moist. Oropharynx without tonsillar hypertrophy exudate or other lesions. Posterior pharynx mildly erythematous. Bilateral TMs pearly mendoza
[2022-11-06] MEDS: ONDANSETRON INJ 4 MG/2 ML VIAL IV PUSH (19:19)
[2022-11-06] MEDS: SODIUM CHLORIDE 0.9% IV 1,000 ML 999 ML IV CONT (19:19)
[2022-11-06 19:58] LABS: Influenza A QL RT-PCR Negative (Negative); Influenza B QL RT-PCR Negative (Negative); SARS-CoV-2 RNA PCR Negative
--- NOTE | 2022-11-06 21:30 | PC.NURSE ---
Patient given crackers and starry drink for PO challenge.
[2022-11-06 22:03] LABS: Glucose Point of Care 89 mg/dl (65-105)
== END 2022-11-06 22:34 | disposition home or self-care (01) ==
PROVIDERS: Emergency Medicine; Emergency Provider Physician Assistant; PCP Family Medicine
DX: K52.9 Noninfective gastroenteritis and colitis, unspecified (principal); R91.1 Solitary pulmonary nodule; E27.9 Disorder of adrenal gland, unspecified; Z20.822 Contact with and (suspected) exposure to COVID-19; E11.9 Type 2 diabetes mellitus without complications; I10 Essential (primary) hypertension; E78.5 Hyperlipidemia, unspecified; G47.33 Obstructive sleep apnea (adult) (pediatric); K58.9 Irritable bowel syndrome, unspecified; H35.3230 Exudative age-related macular degeneration, bilateral, stage unspecified; Z79.84 Long term (current) use of oral hypoglycemic drugs; Z79.899 Other long term (current) drug therapy; E66.9 Obesity, unspecified; Z68.30 Body mass index [BMI] 30.0-30.9, adult
CPT/HCPCS: 36415; 71046; 74177; 80053; 81001; 82948; 83690; 85025; 87636; 96361; 96374; 99284; J2405; J7030; Q9967

== ENCOUNTER 2023-03-22 16:23 | Outpatient (CLI) | payer MEDICARE, SELFPAY ==
[2023-03-22 17:32] LABS: Basophils Percent Auto 0.3 % (0.2-1.2); Eosinophils Absolute Auto 0.3 K/mm3 (0-0.3); Eosinophils Percent Auto 3.2 % (0-4.4); Hemoglobin 16.1 g/dL (14.0-18.0); Immature Granulocyte Absolute 0.02 K/mm3 (0.00-0.031); Immature Granulocyte Percent A 0.2 % (0-0.5); Lymphocytes Absolute Auto 2.83 K/mm3 (0.9-3.2); Lymphocytes Percent Auto 27.4 % (18.3-44.2); Mean Corpuscular HGB Conc 33.5 g/dl (32-36); Mean Corpuscular Hemoglobin 30.7 pg (26-34); Mean Corpuscular Volume 91.4 fl (80-100); Mean Platelet Volume 10.7 fl (7.4-10.4); Monocytes Absolute Auto 1.1 K/mm3 (0.1-0.6); Neutrophils Percent Auto 57.9 % (45.5-73.1); Platelet Count Result 192 k/mm3 (150-375); Red Blood Count 5.25 M/mm3 (4.6-6.20); Red Cell Distribution Width 12.3 % (11.5-14.5); White Blood Count 10.3 K/mm3 (4.5-10.0)
== END 2023-03-22 16:24 | disposition home or self-care (01) ==
LOC: ANHLAB 16:24
PROVIDERS: PCP Family Medicine; Visit Provider Family Medicine
DX: R10.9 Unspecified abdominal pain (principal)
CPT/HCPCS: 36415; 85025

== ENCOUNTER 2023-12-09 13:05 | Outpatient (CLI) | payer MEDICARE, SELFPAY ==
--- NOTE | ~2023-12-09 | CT_ITS ---
EXAMINATION: CT diagnostic chest wo con DATE: 12/09/2023 13:30 INDICATION: incidental pulmonary nodule 11/06/22 TECHNIQUE: Computed tomography (CT) of the chest was performed without intravenous contrast. Addition al 3D reconstructions utilizing coronal maximum intensity projection (MIP) were performed. Automated exposure control and iterative reconstruction technique were employed. The dose-length product was 28 9.28 mGy-cm. COMPARISON: Correlation is made with report from CT dated 11/06/2022, images which are unavailable disc omfort comparison FINDINGS: Bilateral calcified and noncalcified pleural plaques consistent with chronic asbestos exposure. Again noted is a 5 mm left lower lobe pulmonary nodule which given the interval stability is likely benign . No other suspicious pulmonary nodules, pneumonia, pulmonary edema or pleural effusion. Heart size i s normal. Lipomatous hypertrophy of the atrial septum. Atherosclerotic coronary artery calcific lesio n. Aortic valve calcific lesion. No pericardial effusion. Small sliding-type hiatal hernia. Thoracic aorta is normal in caliber. No pathologically enlarged thoracic lymphadenopathy. 9 mm left renal nodu le with relatively low density and without significant interval change most consistent with an adenom a. Moderate thoracic spondylosis with chronic appearing mild anterior wedging of a few mid thoracic v ertebral bodies. IMPRESSION: 1. Bilateral calcified pleural plaques consistent with chronic asbestos exposure. 2. 5 mm left lower lobe nodule which given lack of interval growth is likely benign. Reviewed, dictated and finalized at location A. IMPRESSION: 1. Bilateral calcified pleural plaques consistent with chronic asbestos exposur e. 2. 5 mm left lower lobe nodule which given lack of interval growth is likely be nign.
--- NOTE | ~2023-12-09 | CT_ITS ---
Non-contrast CT scan of the Abdomen and Pelvis Clinical indication: Adrenal mass Technique: 2.5 mm axial scans were obtained through the abdomen and pelvis without intravenous or or al contrast. Dose reduction technique was used on this scan by utilizing automated exposure control a nd iterative reconstruction technique. The dose-length product (DLP) was 993.60 mGy-cm. Findings: Images through the lung bases reveal small calcified pleural plaques. There is no evidence of renal or ureteral calculi. The kidneys and the ureters are nondilated. The liver, spleen, pancreas, gallbladder, and right adrenal gland appear normal. 9 mm left adrenal no dule again noted. There are atherosclerotic calcifications of the aorta. There is no evidence of bowel obstruction. Images through the pelvis were performed. There is no evidence of ascites or lymphadenopathy. Urinary bladder unremarkable. No pelvic mass seen. Impression: 9 mm left adrenal nodule again noted, most likely benign. Calcified pleural plaques. Reviewed, dictated and finalized at [facility]. Impression: 9 mm left adrenal nodule again noted, most likely benign. Calcified pleural plaques.
== END 2023-12-09 13:06 ==
PROVIDERS: PCP Physician Assistant Medical; Visit Provider Physician Assistant Medical
DX: R91.1 Solitary pulmonary nodule (principal); E27.8 Other specified disorders of adrenal gland
CPT/HCPCS: 71250; 74176

== ENCOUNTER 2024-02-01 00:56 | Day surgery (SDC) | payer MEDICARE, SELFPAY ==
[2024-01-24 09:08] VITALS: BMI 30.2
[2024-02-01 08:13] VITALS: BP 130/70; PULSE 69; RESP 19; TEMP 36.2; O2SAT 98
[2024-02-01 08:31] LABS: Glucose Point of Care 146 mg/dl (65-105)
[2024-02-01] MEDS: LACTATED RINGERS 1,000 ML 150 ML IV CONT (08:34)
--- NOTE | 2024-02-01 08:53 | WPDANESEPPF ---
Anes - Initial Pre Proc Eval Procedure: Operation Date: 02/01/24 09:30 Proposed Procedures p Esophagogastroduodenoscopy - Priyank Gupta MD Date/Time: 02/01/24 08:53 Surgeon: Priyank Gupta MD Pre Op Diagnosis: Dysphagia, diarrhea Patient Data Age: 73 Gender: M Height: 1.83 m Weight: 100.8 kg Last Vital Signs Temp 97.1 F L 02/01/24 08:13 Pulse 69 02/01/24 08:13 Resp 19 02/01/24 08:13 BP 130/70 02/01/24 08:13 Pulse Ox 98 02/01/24 08:13 O2 Del Method Room Air 02/01/24 08:13 Allergies Allergy/AdvReac Type Severity Reaction Status Date / Time metformin AdvReac Mild Diarrhea Verified 02/01/24 08:12 Home Medications Medication Instructions Recorded Confirmed Type cetirizine 10 mg tablet 10 mg PO QPM 08/08/19 01/24/24 History loperamide 2 mg tablet 2 mg PO Q4H 08/08/19 01/24/24 History (Anti-Diarrheal (loperamide)) multivitamin 1 tablet PO DAILY 08/08/19 01/24/24 History vit C 250 mg-vit E 90 mg-zinc 40 1 tablet PO BID 08/08/19 01/24/24 History mg-copper 1 [id number] capsule (PreserVision AREDS-2) pen needle, diabetic 32 gauge x #90 ea 08/28/20 11/25/23 Rx /32 (BD Ultra-Fine Isaura Pen Needle) alcohol swabs (BD Alcohol Swabs) 1 pad topical .qd #200 ea 07/29/21 11/25/23 Rx lancets 28 gauge #100 ea 12/05/21 11/25/23 Rx glipizide 5 mg tablet See Rx Instructions .Route 08/05/22 01/24/24 Rx .COMPLEX #270 tabs dulaglutide 1.5 mg/0.5 mL 1.5 mg (0.5 mL) subcut WEEKLY #6 mL 10/15/22 01/24/24 Rx [facility] blood-glucose meter (Accu-Chek See Rx Instructions .Route 11/16/22 11/25/23 Rx Guide Glucose Meter) .COMPLEX #1 kit blood sugar diagnostic (Accu-Chek See Rx Instructions .Route 03/29/23 11/25/23 Rx Guide test strips) .COMPLEX #100 strips metoprolol succinate 50 mg 50 mg PO DAILY #90 tabs 03/29/23 01/24/24 Rx tablet,extended release 24 hr lisinopril 40 mg tablet 40 mg PO QPM #100 tabs 05/11/23 01/24/24 Rx dapagliflozin propanediol 10 mg 10 mg PO DAILY 05/27/23 01/24/24 History tablet (Farxiga) insulin glargine 100 unit/mL (3 66 unit (0.66 mL) subcut QPM #15 mL 05/27/23 01/24/24 Rx mL) subcutaneous pen (Lantus Solostar U-100 Insulin) amlodipine 10 mg tablet See Rx Instructions .Route 09/20/23 01/24/24 Rx .COMPLEX #90 tabs pregabalin 75 mg capsule 75 mg PO BID 11/25/23 01/24/24 History atorvastatin 40 mg tablet 40 mg PO DAILY #90 tabs 12/13/23 01/24/24 Rx sertraline 100 mg tablet 100 mg PO QPM #90 tabs 12/13/23 01/24/24 Rx omeprazole 20 mg capsule,delayed 20 mg PO QPM #90 caps 12/29/23 01/24/24 Rx release Laboratory Tests 02/01/24 08:26 POC Capillary Glucose 146 H mg/dl (65-105) Patient hx anesthesia problems: none Family hx anesthesia problems: none Results Review: All pre-operative results and documents have been reviewed as part of the pre-operative evaluation. [facility] Past Medical History Medical History Bilateral exudative age-related macular degeneration Essential hypertension Hyperlipidemia IBS (irritable bowel syndrome) Left ear impacted cerumen Obesity LEI (obstructive sleep apnea) CPAP Type 2 diabetes mellitus without complication, with long-term current use of insulin Surgical History Surgical History History of elbow surgery History of left inguinal hernia repair right Family History Family History Mother Diabetes mellitus Family history of cardiovascular disease Sibling Family history of cardiovascular disease Father Family history of primary malignant neoplasm of liver Social History Social History Smoking status: Never smoker Second hand tobacco smoke exposure: No Alcohol intake: current Drinks per
--- NOTE | 2024-02-01 09:00 | PM.HPGS ---
History of Present Illness History of Present Illness Consent: Risks, benefits, and alternatives have been discussed and questions answered. Patient agrees to proceed with procedure. Chief complaint: Dysphagia Narrative: Saran Paz is a 73 year old male with intermittent dysphagia after drinking at throat level, ahd egd but years ago Review of Systems Review of Systems: All systems reviewed & are unremarkable except as noted in HPI and below PMFSH Past Medical History Medical History (Updated 02/01/24 @ 09:01 by Priyank Gupta MD) Bilateral exudative age-related macular degeneration Dysphagia Essential hypertension Hyperlipidemia IBS (irritable bowel syndrome) Left ear impacted cerumen Obesity LEI (obstructive sleep apnea) CPAP Type 2 diabetes mellitus without complication, with long-term current use of insulin Surgical History Surgical History History of elbow surgery History of left inguinal hernia repair right Family History Family History Mother Diabetes mellitus Family history of cardiovascular disease Sibling Family history of cardiovascular disease Father Family history of primary malignant neoplasm of liver Social History Social History Smoking status: Never smoker Second hand tobacco smoke exposure: No Alcohol intake: current Drinks per week: 3 Alcohol use details: occasionally Substance use: never Substance use type: does not use Living arrangements: with family Occupation/Education: occupation Additional occupation/education comments: owns business Gender identity (if verbalized by the patient): Male Sexual Orientation (if Verbalized by the Patient): Straight or Heterosexual Spiritual care concerns: No Meds Home Medications and Allergies Home Medications Medication Instructions Recorded Confirmed Type cetirizine 10 mg tablet 10 mg PO QPM 08/08/19 01/24/24 History loperamide 2 mg tablet 2 mg PO Q4H 08/08/19 01/24/24 History (Anti-Diarrheal (loperamide)) multivitamin 1 tablet PO DAILY 08/08/19 01/24/24 History vit C 250 mg-vit E 90 mg-zinc 40 1 tablet PO BID 08/08/19 01/24/24 History mg-copper 1 [id number] capsule (PreserVision AREDS-2) pen needle, diabetic 32 gauge x #90 ea 08/28/20 11/25/23 Rx 5/32 (BD Ultra-Fine Isaura Pen Needle) alcohol swabs (BD Alcohol Swabs) 1 pad topical .qd #200 ea 07/29/21 11/25/23 Rx lancets 28 gauge #100 ea 12/05/21 11/25/23 Rx glipizide 5 mg tablet See Rx Instructions .Route 08/05/22 01/24/24 Rx .COMPLEX #270 tabs dulaglutide 1.5 mg/0.5 mL 1.5 mg (0.5 mL) subcut WEEKLY #6 mL 10/15/22 01/24/24 Rx subcutaneous pen injector ([employer]io) blood-glucose meter (Accu-Chek See Rx Instructions .Route 11/16/22 11/25/23 Rx Guide Glucose Meter) .COMPLEX #1 kit blood sugar diagnostic (Accu-Chek See Rx Instructions .Route 03/29/23 11/25/23 Rx Guide test strips) .COMPLEX #100 strips metoprolol succinate 50 mg 50 mg PO DAILY #90 tabs 03/29/23 01/24/24 Rx tablet,extended release 24 hr lisinopril 40 mg tablet 40 mg PO QPM #100 tabs 05/11/23 01/24/24 Rx dapagliflozin propanediol 10 mg 10 mg PO DAILY 05/27/23 01/24/24 History tablet (Farxiga) insulin glargine 100 unit/mL (3 66 unit (0.66 mL) subcut QPM #15 mL 05/27/23 01/24/24 Rx mL) subcutaneous pen (Lantus Solostar U-100 Insulin) amlodipine 10 mg tablet See Rx Instructions .Route 09/20/23 01/24/24 Rx .COMPLEX #90 tabs pregabalin 75 mg capsule 75 mg PO BID 11/25/23 01/24/24 History atorvastatin 40 mg tablet 40 mg PO DAILY #90 tabs 12/13/23 01/24/24 Rx sertraline 100 mg tablet 100 mg PO QPM #90 tabs 12/13/23 01/24/24 Rx omeprazole 20 mg capsule,delayed 20 mg PO QPM #90 caps 12/29/23 01/24/24 Rx release Allergies Allergy/AdvReac Type Severity R
[2024-02-01 09:16] VITALS: BP 102/70; PULSE 74; RESP 20; O2SAT 96
[2024-02-01 09:26] VITALS: BP 111/64; PULSE 68; RESP 19; O2SAT 98
[2024-02-01 09:35] LABS: Glucose Point of Care 153 mg/dl (65-105)
[2024-02-01 09:36] VITALS: BP 120/75; PULSE 67; RESP 20; O2SAT 100
== END 2024-02-01 09:50 | disposition home or self-care (01) ==
PROVIDERS: PCP Physician Assistant Medical; Visit Provider Internal Medicine Gastroenterology
PROC: 0DJ08ZZ Inspection of Upper Intestinal Tract, Via Natural or Artificial Opening Endoscopic (ICD-10-PCS; CPT 43235; principal; 2024-02-01 09:30)
DX: K29.50 Unspecified chronic gastritis without bleeding (principal); K21.00 Gastro-esophageal reflux disease with esophagitis, without bleeding; I10 Essential (primary) hypertension; E78.5 Hyperlipidemia, unspecified; E11.9 Type 2 diabetes mellitus without complications; G47.33 Obstructive sleep apnea (adult) (pediatric); H35.3230 Exudative age-related macular degeneration, bilateral, stage unspecified; E66.9 Obesity, unspecified; Z68.30 Body mass index [BMI] 30.0-30.9, adult; Z79.84 Long term (current) use of oral hypoglycemic drugs; Z79.85 Long-term (current) use of injectable non-insulin antidiabetic drugs; Z79.4 Long term (current) use of insulin
CPT/HCPCS: 43239; 82948; 88305; J2704; J7120

== ENCOUNTER 2024-12-25 10:06 | Outpatient (CLI) | payer MEDICARE, SELFPAY ==
--- NOTE | ~2024-12-25 | XR_ITS ---
Clinical Indication: Asbestos exposure PA and lateral views of the chest: Comparison: 11/06/2022 Findings: Stable calcified pleural plaques. No acute pulmonary abnormality seen. Cardiomediastinal s ilhouette is within normal limits. Bones and soft tissues are unremarkable. Impression: Stable calcified pleural plaques, compatible with history of asbestos exposure. Reviewed, dictated and finalized at [facility]. Impression: Stable calcified pleural plaques, compatible with history of asbestos exposure.
== END 2024-12-25 10:07 | disposition home or self-care (01) ==
LOC: MICIMG 10:07
PROVIDERS: PCP Family Medicine; Visit Provider Physician Assistant
DX: R93.89 Abnormal findings on diagnostic imaging of other specified body structures (principal); J92.0 Pleural plaque with presence of asbestos; Z77.090 Contact with and (suspected) exposure to asbestos
CPT/HCPCS: 71046

== ENCOUNTER 2025-03-19 08:40 | Outpatient (CLI) | payer MEDICARE, SELFPAY ==
--- NOTE | ~2025-03-19 | XR_ITS ---
Clinical Indication: Chest pain PA and lateral views of the chest: Comparison: 12/25/2024 Findings: There is bibasilar scarring or atelectasis, similar to prior exam. Probable calcified plaqu e at the right midlung and left upper lobe region. Cardiomediastinal silhouette is within normal erwin its. Bones and soft tissues are unremarkable. Impression: No acute abnormality. Stable bibasilar scarring or atelectasis. Stable probable calcified pleural plaques. Reviewed, dictated and finalized at [facility]. Impression: No acute abnormality. Stable bibasilar scarring or atelectasis. Stable probable calcified pleural melina ques.
--- OUTSIDE RECORDS SUMMARY | 2025-03-19 08:54 | XMS_ITS | Clinical Summary ---
Author Organization [facility] Address [address] [place] [address] Care Team Providers Care Metrologist Name Role Phone Rogelio Sanchez MD Primary Care Provider Allergies No known active allergies Medications omeprazole (PriLOSEC) 20 mg capsule 08/24/20 18 Active atorvastatin (LIPITOR) 40 mg tablet Active metoprolol XL (TOPROL-XL) 50 mg 24 hr tablet Take 1 tablet (50 mg total) by mouth Active cetirizine 10 mg tablet,disinte grating Active sertraline (ZOLOFT) 100 mg tablet Active aspirin 81 mg enteric coated tablet Take 1 tablet (81 mg total) by mouth daily Active amLODIPine (NORVASC) 10 mg tablet 11/06/19 23 Active Accu-Chek Guide test strips strip 11/14/19 23 Active Accu-Chek Guide Glucose Meter misc 11/18/19 23 Active lisinopriL (PRINIVIL,ZEST RIL) 40 mg tablet 12/13/19 23 Active loperamide-sim ethicone 2-125 mg tablet Take by mouth Active Trulicity 1.5 mg/0.5 mL pen injector Inject 0.5 mL (1.5 mg total) under the skin once a week 6 mL 3 07/11/20 24 Active prednisoLONE acetate (PRED FORTE) 1 % ophthalmic suspension SHAKE LIQUID AND INSTILL 1 DROP IN BOTH EYES EVERY 2 HOURS WHILE AWAKE 09/25/19 25 Active glipiZIDE (GLUCOTROL) 5 mg tabletIndicati ons:Type 2 diabetes mellitus with hyperglycemia, with long-term current use of insulin (HCC) Take 1 tablet (5 mg total) by mouth 2 (two) times a day before breakfast and lunch 180 tablet 3 10/23/19 25 026 Active LANTUS 100 unit/mL (3 mL) pen for injection Inject 68 Units under the skin executive search consultant before breakfast 60 mL 3 11/10/19 25 Active pregabalin (LYRICA) 75 mg capsule TAKE 1 CAPSULE TWICE DAILY 180 capsule 11/18/19 25 Active Droplet Pen Needle 32 gauge x 5/32 needleIndicati ons:Type 2 diabetes mellitus with hyperglycemia, with long-term current use of insulin (HCC) USE DIRECTED 300 each 3 11/18/19 25 Active Farxiga 10 mg tablet TAKE 1 TABLET EVERY DAY 90 tablet 3 12/14/19 25 Active Vascepa 1 gram capsule TAKE 2 CAPSULES TWICE DAILY 360 capsule 3 02/22/20 25 Active icosapent ethyL (VASCEPA) 1 gram capsule Take 2 capsules (2 g total) by mouth 2 (two) times a day 360 capsule 3 04/28/20 24 025 Discontinued Active Problems Problem Noted Date Diagnosed Date RAMOS (dyspnea on exertion) 10/14/2018 LAFB (left anterior fascicular block) 10/14/2018 LEI (obstructive sleep apnea) 10/14/2018 Hypertension associated with diabetes 10/14/2018 Assessment & Plan (10/23/2024 10:13 AM GOAT HERDER): Chronic problem. Controlled on current Lisinopril 40mg daily, metoprolol XL 50mg daily, amlodipine 10mg daily. Assessment & Plan (04/20/2024 1:28 PM CDT): Chronic, stable. Continue current regimen including lisinopril. Update microalbumin Assessment & Plan (10/07/2023 1:03 PM GOAT HERDER): Chronic, well-controlled Continue lisinopril Assessment & Plan (05/13/2023 10:48 AM CDT): Chronic problem. Controlled on current Lisinopril 40mg daily, metoprolol XL 50mg daily, amlodipine 10mg daily. Assessment & Plan (01/14/2023 5:02 PM CDT): Chronic, well-controlled Continue current medications including lisinopril Update GFR and MA Hyperlipidemia associated with type 2 diabetes m amadeoitus 10/14/2018 Assessment & Plan (10/23/2024 10:13 AM GOAT HERDER): Chronic problem. Near goal on current Atorvastatin 40mg & Vascepa 2gm bid. Last lipid panel: 04/20/24 LDL=76, HZ=174. Assessment & Plan (04/20/2024 1:23 PM CDT): Chronic, stable Continue Atorvastatin 40 mg daily Update lipid profile Assessment & Plan (10/07/2023 1:04 PM GOAT HERDER): Chronic, well-controlled Continue statin therapy with atorvastatin Assessment & Plan (05/13/2023 10:49 AM CDT): Chronic problem. Near goal on current Atorvastatin 40mg. Last lipid panel: 01/14/23 LDL=81, VV=123. Assessment & Plan (01/14/2023 5:02 PM CDT): Chronic, well-controlled Update lipid profile Continue statin therapy with atorvastatin Essential hypertension 10/14/2018 Diabetes mellitus 09/22/2017 Assessment & Plan (10/23/2024 10:33 AM GOAT HERDER): Chronic problem. A1c worsened from 7.0% 04/20/24 to now 7.6%. had been on oral steroids for several weeks. Current medications: Glipizide 5mg with breakfast & dinner Farxiga 10mg daily Trulicty 1.5mg weekly Lantus 68 units every morning UTD on labs. UTD on DM eye exam (03/02/23 no [facility]). Strive for regular exercise (30min most days) and diet (get at least 4-5 servings of fruit and veggies daily, avoid processed foods, increase lean protein intake and decrease carb portions as well as fruit juices, regular soda & desserts). Watch carbs and simple sugars. Check the blood sugar daily. Check the feet daily for skin breakdown and infection. Assessment & Plan (04/20/2024 1:27 PM CDT): Chronic, well-controlled Continue current regimen with Trulicity, Farxiga, glipizide and Tresiba Treatment and prevention of hypoglycemia was discussed Assessment & Plan (10/07/2023 1:04 PM GOAT HERDER): Hba1c was Lab Results Component Value Date HGBA1C 7.0 10/07/2023 today, indicating adequate DM control Goal Hba1c under 7 and blood glucose level in the 120-160 range was explained Low carb diet and daily aerobic and /or resistant exercise were advised Prevention and treatment of hyypoglcyemia were discussed with the patient Blood glucose monitoring : 1 or twice a day Adjustment to medications: Continue current regimen with Farxiga 10 mg daily, Lantus, glipizide and Trulicity Assessment & Plan (05/13/2023 11:09 AM CDT): Chronic problem. A1c stable at 6.4% but having some lower blood sugars. To decrease lantus 2 units weekly if persistently lower blood sugars. Current medications: Glipizide 5mg with breakfast & dinner Farxiga 10mg daily Trulicty 1.5mg weekly Lantus 68 units every morning UTD on labs. UTD on DM eye exam. Most recent appt & f/u scheduled for 05/25/23. Letter sent to [facility] to get copy of recent exam. Strive for regular exercise (30min most days) and diet (get at least 4-5 servings of fruit and veggies daily, avoid processed foods, increase lean protein intake and decrease carb portions as well as fruit juices, regular soda & desserts). Watch carbs and simple sugars. Check the blood sugar daily. Check the feet daily for skin breakdown and infection. Assessment & Plan (01/14/2023 5:01 PM CDT): Hba1c was Lab Results Component Value Date HGBA1C 6.5 01/14/2023 today, indicating Adequate DM control Goal Hba1c and blood glucose explained Diet and exercise were advised Prevention and treatment of hyypoglcyemia were discussed with the patient Blood glucose monitoring : Twice a day Adjustment to medications: Continue current regimen, with Lantus glipizide and Farxiga as well as Trulicity I advised the patient to cut the glipizide to once a day if he starts having nocturnal hypoglycemia Assessment & Plan (08/12/2022 9:11 AM GOAT HERDER): Hba1c was Lab Results Component Value Date HGBA1C 7.4 08/12/2022 today, indicating inappropriate DM control with hypoglycemia Goal Hba1c and blood glucose explained Diet and exercise were advised Prevention and treatment of hyypoglcyemia were discussed with the patient Blood glucose monitoring : 1 x day Adjustment to medications: Lower Glucotrol to 5 mg bid, am and pm , with meals Move Lantus to am Stay on Trulicity Start Farxiga Tenosynovitis 01/19/2012 Presbyopia 10/12/2011 Neuropathy in diabetes Assessment & Plan (10/23/2024 10:13 AM GOAT HERDER): Chronic problem. Currently taking Lyrica 75mg bid. Reviewed foot care; needs to lotion daily. Aware to check feet nightly, not to go barefoot. Assessment & Plan (04/20/2024 1:28 PM CDT): Chronic, stable Foot care discussed Prescription for Lyrica was sent Assessment & Plan (10/07/2023 1:05 PM GOAT HERDER): Foot care discussed Will Lyrica Assessment & Plan (05/13/2023 11:00 AM CDT): Chronic problem. Gabapentin 300mg nightly. Not helping; will increase to 300mg after work/early evening & again at HS. Aware to check feet nightly; to not go barefoot. Assessment & Plan (08/12/2022 9:12 AM GOAT HERDER): Foot care discussed Start Gabapentin, bedtime Resolved Problems Problem Noted Date Diagnosed Date Resolved Date Pre-operative cardiovascular examination 10/14/2018 05/12/2023 Hyperlipidemia LDL goal <70 10/14/2018 05/12/2023 Surgical History Surgery Date Site/Laterality Comments HERNIA REPAIR Medical History Medical History Date Comments Left lower quadrant pain Left in guinal pain - (Added by TW Conv) Hypertension Hyperlipidemia Diabetes mellitus (HCC) Acid indigestion Cataracts, bilateral Sleep apnea Anxiety and depression Arthritis Neuropathy in diabetes (HCC) Gastric reflux Peptic ulceration Family History Medical History Relation Name Comments Heart disease Brother Liver cancer Father Diabetes Mother Family history of diabetes mellitus - (Added by TW Conv) Heart disease Mother Family history of cardiac disorder - (Added by TW Conv) Kidney failure Mother Relation Name Status Comments Brother (Age 73) Father (Age 67) Mother (Age 75) Social History Tobacco Use Types Packs/Day Years Used Date Smoking Tobacco: Never Smokeless Tobacco: Current Alcohol Use Standard Drinks/Week Comments Yes 16 (1 standard drink = 0.6 oz pu re alcohol) PHQ-2 Answer Date Recorded PHQ-2 Total Score (If total score is 3 or more points, staff should administer the PHQ-9) 0 04/20/2024 Sex and Gender Information Value Date Recorded Sex Assigned at Not on file Legal Sex Male 10:51 PM GOAT HERDER Gender Identity Not on file Sexual Orientation Straight 04/20/2024 1: 08 PM CDT Obstetrics History Last Filed Vital Signs Vital Sign Reading Time Taken Comments Blood Pressure 138/80 10/23/2024 9:57 AM GOAT HERDER Pulse 76 10/23/2024 9:57 AM GOAT HERDER Temperature - - Respiratory Rate 18 10/23/2024 9:57 AM GOAT HERDER Oxygen Saturation 98% 04/20/2024 1:07 PM CDT Inhaled Oxygen Concentration - - Weight 102.1 kg (225 lb) 10/23/2024 9:57 AM GOAT HERDER Height 182.9 cm (6' 0.01) 10/23/2024 9:57 AM CS T Body Mass Index 30.51 10/23/2024 9:57 AM GOAT HERDER Plan of Treatment Health Maintenance Due Date Last Done Comments Hepatitis B Screening 1968 Pneumococcal vaccine 65+ (1 of 2 - PCV) 1969 Zoster Vaccine (1 of 2) 2000 Well Visit 65+ 2015 Colon Cancer Screening-Colonoscopy 12/15/2022 12/15/2012 Covid-19 Vaccine (2023-2 5 season) 2024 01/07/2021, 12/17/2020 eGFR 10/07/2024 10/07/2023, 01/14/2023 Albumin Creatinine Ratio, Urine 04/20/2025 , 01/14/2023 Depression Screening 04/20/2025 04/20/2024, 08/12/20 22 Fall Risk Assessment 04/20/2025 04/20/2024 Lipid Panel 04/20/2025 04/20/2024, 01/04, 10/14/2018, Additional history exists Hemoglobin A1C 04/22/2025 10/23/2024, 04/06, 10/07/2023, Additional history exists Influenza Vaccine (#1) 2025 08/08/2019 Dilated Eye Exam 10/03/2025 10/03/2024, , 06/09/2022, Additional history exists Foot Exam 10/23/2025 10/23/2024, 08/12/2022 DTaP/Tdap/Td Vaccine (2 - Td or Tdap) 05/01/2030 05/01/2020 Colon Cancer Screening-CT Colonography Discontinued 12/15/2012 Colon Cancer Screening-DNA Stool Discontinued 12/16/19 13 Colon Cancer Screening-FIT Discontinued 12/15/2012 Colon Cancer Screening-Sigmoidoscopy Discontinued 12/15/2012 Hepatitis C Screening Completed 08/23/2013 Procedures Procedure Name Priority Date/Time Associated Diagnosis Comments POCT HEMOGLOBIN A1C Routine 10/23/2024 1 0:00 AM GOAT HERDER Type 2 diabetes mellitus with hyperglycemia, with long-term current use of insulin (HCC) HM DIABETES EYE EXAM Routine 10/03/2024 7:24 AM GOAT HERDER LIPID PANEL Routine 04/20/2024 1:47 PM CDT Type 2 diabetes mellitus with hyperglycemia, with long-term current use of insulin (HCC) ALBUMIN CREATININE RATIO, URINE Routine 04/20/2024 1:47 PM CDT EGFR Routine 10/07/2023 10:19 AM GOAT HERDER Type 2 diabetes mellitus with hyperglycemia, with long-term current use of insulin (HCC) SERUM HEPATITIS C AB Routine 08/23/2013 3:19 PM GOAT HERDER COLONOSCOPY REPORT 12/15/2012 from Last 3 Months or Most Recently Relevant to Health Maintenance Results * (ABNORMAL) POCT hemoglobin A1c (10/23/2024 10:00 AM GOAT HERDER) Hemoglobin A1C, POC 7.6 4.0 - 5.6 % Blood 10/23/2024 10:0 0 AM GOAT HERDER Cyndy Moran NP POINT OF CARE TEST ORDERA BLES Final Result * DIABETES EYE EXAM (10/03/2024 7:24 AM GOAT HERDER) Historical Provider HEALTH MAINTENANCE Final Result * Albumin Creatinine Ratio, Urine (04/20/2024 1:47 PM CDT) Albumin Ur <12.0 mg/L Comment: Interpretive Data No reference range established. Current interpretive data was last revised 2019. Creatinine Ur 78.0 mg/dL [facility] Comment: Interpretive Data No reference range established. Current interpretive data was last revised 2019. Albumin Creatinine Ratio, Ur <15 1 - 29 mg/g [facility] Urine 04/20/2024 1:47 PM CDT 04/21/2024 8:41 AM CDT Laura Vaughn MD LAB URINE ORDERABLES Final Resul t [facility] [id number] Department [place] [address] * (ABNORMAL) Lipid panel (04/20/2024 1:47 PM CDT) Cholesterol 164 30 - 199 mg/dL Comment: Interpretive Data Ages < or = 19 years Acceptable: <170 mg/dL Borderline high: 170-199 mg/dL High: >or= 200 mg/dL Ages > or = 20 years Desirable: <200 mg/dL Borderline high: 200-239 mg/dL High: >or= 240 mg/dL Literature References: 1. Expert Panel on Integrated Guidelines for Cardiovascular Health and Risk Reduction in Children and Adolescents. Pediatrics 2011;128:S213 2. NCEP Expert Panel. Circulation 2003;110:227 Current Interpretive Data was last revised on 2018. Triglycerides 450(H) <=149 mg/dL [facility] Comment: Interpretive Data Ages < or = 9 years Acceptable: <75 mg/dL Borderline high: 75-99 mg/dL High: >or= 100 mg/dL Ages 10 to 20 years Acceptable: <90 mg/dL Borderline high: 90-129 mg/dL High: >or= 130 mg/dL Ages > or = 20 years Desirable: <150 mg/dL Borderline high: 150-199 mg/dL High: 200-499 mg/dL Very high: >or= 499 mg/dL Literature References: 1. Expert Panel on Integrated Guidelines for Cardiovascular Health and Risk Reduction in Children and Adolescents. Pediatrics 2011;128:S213 2. NCEP Expert Panel. Circulation 2003;110:227 Current Interpretive Data was last revised on 2018. HDL 38(L) >=40 mg/dL [facility] Comment: Interpretive Data Ages < or = 19 years Acceptable: >45 mg/dL Borderline low: 40-45 mg/dL Low: <40 mg/dL Ages > or = 20 years Desirable: >or= 60 mg/dL Low: <40 mg/dL Literature References: 1. Expert Panel on Integrated Guidelines for Cardiovascular Health and Risk Reduction in Children and Adolescents. Pediatrics 2011;128:S213 2. NCEP Expert Panel. Circulation 2003;110:227 Current Interpretive Data was last revised on 2018. LDL, calculated See Comment <=129 mg/dL [facility] Comment: Unable to calculate due to elevated Triglycerides. Interpretive Data Ages < or = 19 years Acceptable: <110 mg/dL Borderline high: 110-129 mg/dL High: >or= 130 mg/dL Ages > or = 20 years Optimal: <100 mg/dL Near optimal: 100-129 mg/dL Borderline high: 130-159 mg/dL High: >160 mg/dL Literature References: 1. Expert Panel on Integrated Guidelines for Cardiovascular Health and Risk Reduction in Children and Adolescents. Pediatrics 2011;128:S213 2. NCEP Expert Panel. Circulation 2004;110:227 Current Interpretive Data was last revised on 2018. Non-HDL Cholesterol 126 mg/dL [facility] Comment: Interpretive Data Ages < or = 19 years Acceptable: <120 mg/dL Borderline high: 120-144 mg/dL High: >145 mg/dL Ages > or = 20 years When triglycerides are >200 mg/dL, Non-HDL cholesterol is a secondary target of therapy with treatment goals that are 30 mg/dL greater than the LDL cholesterol target. Literature References: 1. Expert Panel on Integrated Guidelines for Cardiovascular Health and Risk Reduction in Children and Adolescents. Pediatrics 2011;128:S213 2. NCEP Expert Panel. Circulation 2004;110:227 Current Interpretive Data was last revised on 2018. Chol/HDL ratio 4 [facility] Blood 04/20/2024 1:47 PM CDT 04/20/2024 7:12 PM CDT us Laura Vaughn MD LAB BLOOD ORDERABLES Final Resul t [facility] [id number] Department [place] [address] * eGFR (10/07/2023 10:19 AM GOAT HERDER) eGFR 82 mL/min/1. 73 m2 [facility] Comment: Interpretive Data Reference Interval Normal >/= 90 mL/min/1.73m2 Mildly decreased* 60 - 89 mL/min/1.73m2 Mildly to moderately decreased 45 - 59 mL/min/1.73m2 Moderately to severely decreased 30 - 44 mL/min/1.73m2 Severely decreased 15 - 29 mL/min/1.73m2 Kidney Failure < 15 mL/min/1.73m2 *Relative to young adult level Estimated glomerular filtration rate is determined by the 2020 CKD-EPI equation recommended by the National Kidney Foundation (A Unifying Approach to GFR Estimation: Recommendations of the NKF-ASK Task Force on Reassessing the Inclusion of Race in Diagnosing Kidney Disease, JASN 202). The CKD-EPI equation should not be used for patients with unstable renal function and has not been validated in children and those over 70. Current interpretive data was last reviewed 2021. Blood 10/07/2023 10:1 9 AM GOAT HERDER 10/07/2023 9:09 PM GOAT HERDER us Laura Vaughn MD LAB BLOOD ORDERABLES Final Resul t [facility] [id number] Department [place] [address] * Serum Hepatitis C ab (08/23/2013 3:19 PM GOAT HERDER) HCV ab Negative Negative HISTORICAL RESULTS Serum 08/23/2013 3:19 PM GOAT HERDER us Nikia Wild MD LAB BLOOD ORDERABLES Final Resu lt HISTORICAL RESULTS * COLONOSCOPY REPORT (12/15/2012) Anatomical Region Laterality Modality Other Narrative 12/15/2012 Ordered by an unspecified provider. Historical Provider GI PROCEDURE ORDERABLES F inal Result from Last 3 Months or Most Recently Relevant to Health Maintenance Insurance [employer] CHOICE MEDICARE PPO Thumbs Up CHOICE MEDICARE PPO [employer] CHOICE MEDICARE PPO Care Teams Metrologist Relationship Specialty Start Date End Date Rogelio Sanchez MD [address] [place] [address] PCP - General Family Medicine 10/31/18
--- OUTSIDE RECORDS SUMMARY | 2025-03-19 08:54 | XMS_ITS | Clinical Summary ---
Author Organization [facility] Address [address] [place] [address] Care Team Providers Care Business Banking Representative Name Role Phone Rogelio Sanchez MD Primary Care Provider [phone] Source Comments [facility],non-owned Affiliates and Associated Physician Practices is amultiple site organization consisting of ambulatory clinics and hospital sitesin [place], [place], [place] and [place]. This disclosure is being madepursuant to the Care Everywhere program and may not contain all information available regarding this patient. Last updated 18.[facility] Allergies No known active allergies Medications * Be aware that medications may not be up to date on this document. Alwaysverify current medications with the patient. atorvastatin (LIPITOR) 40 MG tablet Take 40 mg by mouth at bedtime Active omeprazole (PRILOSEC) 20 MG capsule Take 20 mg by mouth daily before breakfast Active multivitamin (OCUVITE PRESERVISION) TABS tablet Take 2 Tabs by mouth once daily Active insulin glargine (LANTUS) pen Inject 54 Units subcutaneously at bedtime Active sertraline (ZOLOFT) 50 MG tablet Take 50 mg by mouth once daily Active lisinopril (PRINIVIL; ZESTRIL) 20 MG tablet Take 20 mg by mouth once daily Active metoprolol succinate XL 24hr (TOPROL XL) 50 MG tablet Take 50 mg by mouth once daily Active Social History Tobacco Use Types Packs/Day Years Used Date Smoking Tobacco: Never Alcohol Use Standard Drinks/Week Comments Yes 2 (1 standard drink = 0.6 oz pur e alcohol) Sex and Gender Information Value Date Recorded Sex Assigned at Not on file Legal Sex Male 9:36 AM CDT Gender Identity Not on file Sexual Orientation Not on file Last Filed Vital Signs Vital Sign Reading Time Taken Comments Blood Pressure 111/72 02/04/2017 8:29 AM CDT Pulse 54 02/04/2017 8:29 AM CDT Temperature 36.5 C (97.7 F) 02/04/2017 8:12 AM CDT Respiratory Rate 20 02/04/2017 8:29 AM CDT Oxygen Saturation 94% 02/04/2017 8:29 AM CDT Inhaled Oxygen Concentration - - Weight 99.8 kg (220 lb) 02/04/2017 7:32 AM CDT Height 180.3 cm (5' 11) 02/04/2017 7:32 AM CDT Body Mass Index 30.68 02/04/2017 7:32 AM CDT Plan of Treatment Health Maintenance Due Date Last Done Comments COLOGUARD (AGES 45-75) - COL ON CA SCREENING 1950 COLON MONITORING 1950 COLONOSCOPY - COLON CA SCREENING 1950 CT COLONOGRAPHY - COLON CA SCREENING 1950 Colorectal Cancer Screening 1950 FIT - COLON CA SCREENING 1950 FLEX SIG - COLON CA SCREENING 1950 HEPATITIS C SCREENING 06/03/1968 DTAP/TDAP/TD VACCINES (1 - Tdap) 1969 PNEUMOCOCCAL VACCINE 50+ (1 of 1 - PCV) 2000 ZOSTER VACCINE (1 of 2) 2000 COVID-19 VACCINE (1 - 2023-2 5 season) 2024 DEPRESSION SCREENING 09/06/2024 MEDICARE AWV CALENDAR YEAR 2024 INFLUENZA VACCINE (#1) 2025 Respiratory Syncytial Virus (RSV) Vaccine Pt: or over 60 yrs (1 - 1-dose 75+ series) 2025 HEPATITIS B VACCINE Aged Out No longe r eligible based on patient's age to complete this topic HIB VACCINE Aged Out No longer eligi ble based on patient's age to complete this topic HPV VACCINE Aged Out No longer eligi ble based on patient's age to complete this topic MENINGOCOCCAL (Group B) VACC INE SHARED DECISION-MAKING Aged Out No longer eligibl e based on patient's age to complete this topic MENINGOCOCCAL GROUPS A/C/Y/W VACCINE Aged Out No longer eligible b ased on patient's age to complete this topic Insurance [employer] MEDICARE ADV HMO & PPO * Guarantor: SARAN PAZ Account Type Relation to Patient Date of Phone Billing Address Personal/Family [address] [place] [address] [facility] * Guarantor: SARAN PAZ Account Type Relation to Patient Date of Phone Billing Address Personal/Family [address] [place] [address] * Guarantor: SARAN PAZ Account Type Relation to Patient Date of Phone Billing Address Personal/Family [address] [place] [address] Care Teams Business Banking Representative Relationship Specialty Start Date End Date Rogelio Sanchez MD [address] [place] [address] PCP - General 11/26/21
--- OUTSIDE RECORDS SUMMARY | 2025-03-19 08:54 | XMS_ITS | Referral Summary ---
Author Organization [facility] Address [address] [place] [address] Care Team Providers Care Director Sales Training Name Role Phone Rogelio Sanchez MD Primary [...] injection Inject 68 Units under the skin microsoft bi architect before breakfast 60 mL 3 11/10/19 25 [...] 10/14/2018 Assessment & Plan (10/23/2024 10:13 AM FISH HATCHERY INSPECTOR): Chronic problem. Controlled on current Lisinopril 40mg daily, metoprolol XL 50mg daily, amlodipine 10mg daily. Assessment & Plan (04/20/2024 1:28 PM CDT): Chronic, stable. Continue current regimen including lisinopril. Update microalbumin Assessment & Plan (10/07/2023 1:03 PM FISH HATCHERY INSPECTOR): Chronic, well-controlled Continue lisinopril Assessment & Plan (05/13/2023 10:48 AM CDT): Chronic problem. Controlled on current Lisinopril 40mg daily, metoprolol XL 50mg daily, amlodipine 10mg daily. Assessment & Plan (01/14/2023 5:02 PM CDT): Chronic, well-controlled Continue current medications including lisinopril Update GFR and MA Hyperlipidemia associated with type 2 diabetes m amadeoitus 10/14/2018 Assessment & Plan (10/23/2024 10:13 AM FISH HATCHERY INSPECTOR): Chronic problem. Near goal on current Atorvastatin 40mg & Vascepa 2gm bid. Last lipid panel: 04/20/24 LDL=76, TY=519. Assessment & Plan (04/20/2024 1:23 PM CDT): Chronic, stable Continue Atorvastatin 40 mg daily Update lipid profile Assessment & Plan (10/07/2023 1:04 PM FISH HATCHERY INSPECTOR): Chronic, well-controlled Continue statin therapy with atorvastatin Assessment & Plan (05/13/2023 10:49 AM CDT): Chronic problem. Near goal on current Atorvastatin 40mg. Last lipid panel: 01/14/23 LDL=81, VT=718. Assessment & Plan (01/14/2023 5:02 PM CDT): Chronic, well-controlled Update lipid profile Continue statin therapy with atorvastatin Essential hypertension 10/14/2018 Diabetes mellitus 09/22/2017 Assessment & Plan (10/23/2024 10:33 AM FISH HATCHERY INSPECTOR): Chronic problem. A1c worsened from 7.0% 04/20/24 to now 7.6%. had been on oral steroids for several weeks. Current medications: Glipizide 5mg with breakfast & dinner Farxiga 10mg daily Trulicty 1.5mg weekly Lantus 68 units every morning UTD on labs. UTD on DM eye exam (03/02/23 no [facility] Retina [place]). Strive for regular exercise (30min most days) [...] discussed Assessment & Plan (10/07/2023 1:04 PM FISH HATCHERY INSPECTOR): Hba1c was Lab Results Component Value Date [...] hypoglycemia Assessment & Plan (08/12/2022 9:11 AM FISH HATCHERY INSPECTOR): Hba1c was Lab Results Component Value Date [...] diabetes Assessment & Plan (10/23/2024 10:13 AM FISH HATCHERY INSPECTOR): Chronic problem. Currently taking Lyrica 75mg bid. Reviewed foot care; needs to lotion daily. Aware to check feet nightly, not to go barefoot. Assessment & Plan (04/20/2024 1:28 PM CDT): Chronic, stable Foot care discussed Prescription for Lyrica was sent Assessment & Plan (10/07/2023 1:05 PM FISH HATCHERY INSPECTOR): Foot care discussed Will Lyrica Assessment & Plan (05/13/2023 11:00 AM CDT): Chronic problem. Gabapentin 300mg nightly. Not helping; will increase to 300mg after work/early evening & again at HS. Aware to check feet nightly; to not go barefoot. Assessment & Plan (08/12/2022 9:12 AM FISH HATCHERY INSPECTOR): Foot care discussed Start Gabapentin, bedtime Resolved Problems Problem Noted Date Diagnosed Date Resolved Date Pre-operative cardiovascular examination 10/14/2018 05/12/2023 Hyperlipidemia LDL goal <70 10/14/2018 05/12/2023 Social History Tobacco Use Types Packs/Day Years [...] on file Legal Sex Male 10:51 PM FISH HATCHERY INSPECTOR Gender Identity Not on file Sexual Orientation Straight 04/20/2024 1: 08 PM CDT Last Filed Vital Signs Vital Sign Reading Time Taken Comments Blood Pressure 138/80 10/23/2024 9:57 AM FISH HATCHERY INSPECTOR Pulse 76 10/23/2024 9:57 AM FISH HATCHERY INSPECTOR Temperature - - Respiratory Rate 18 10/23/2024 9:57 AM FISH HATCHERY INSPECTOR Oxygen Saturation 98% 04/20/2024 1:07 PM CDT Inhaled Oxygen Concentration - - Weight 102.1 kg (225 lb) 10/23/2024 9:57 AM FISH HATCHERY INSPECTOR Height 182.9 cm (6' 0.01) 10/23/2024 9:57 AM CS T Body Mass Index 30.51 10/23/2024 9:57 AM FISH HATCHERY INSPECTOR Plan of Treatment Not on file Procedures Procedure Name Priority Date/Time Associated Diagnosis Comments POCT HEMOGLOBIN A1C Routine 10/23/2024 1 0:00 AM FISH HATCHERY INSPECTOR Type 2 diabetes mellitus with hyperglycemia, with long-term current use of insulin (HCC) HM DIABETES EYE EXAM Routine 10/03/2024 7:24 AM FISH HATCHERY INSPECTOR LIPID PANEL Routine 04/20/2024 1:47 PM CDT Type 2 diabetes mellitus with hyperglycemia, with long-term current use of insulin (HCC) ALBUMIN CREATININE RATIO, URINE Routine 04/20/2024 1:47 PM CDT EGFR Routine 10/07/2023 10:19 AM FISH HATCHERY INSPECTOR Type 2 diabetes mellitus with hyperglycemia, with long-term current use of insulin (HCC) SERUM HEPATITIS C AB Routine 08/23/2013 3:19 PM FISH HATCHERY INSPECTOR COLONOSCOPY REPORT 12/15/2012 from Last 3 Months or Most Recently Relevant to Health Maintenance Results * (ABNORMAL) POCT hemoglobin A1c (10/23/2024 10:00 AM FISH HATCHERY INSPECTOR) Hemoglobin A1C, POC 7.6 4.0 - 5.6 % Blood 10/23/2024 10:0 0 AM FISH HATCHERY INSPECTOR Cyndy Moran NP POINT OF CARE TEST ORDERA BLES Final Result * HM DIABETES EYE EXAM (10/03/2024 7:24 AM FISH HATCHERY INSPECTOR) Historical Provider HEALTH MAINTENANCE Final Result * [...] LAB URINE ORDERABLES Final Resul t [facility] [id number] Department [place] [address] * (ABNORMAL) Lipid panel (04/20/2024 1:47 PM [...] on 2018. Triglycerides 450(H) <=149 mg/dL [facility] Comment: Interpretive Data Ages [...] on 2018. HDL 38(L) >=40 mg/dL [facility] Comment: Interpretive Data Ages [...] LDL, calculated See Comment <=129 mg/dL [facility] Comment: Unable to calculate due to elevated [...] LAB BLOOD ORDERABLES Final Resul t [facility] [address] Department [place] [address] * eGFR (10/07/2023 10:19 AM FISH HATCHERY INSPECTOR) eGFR 82 mL/min/1. 73 m2 [facility] [...] reviewed 2021. Blood 10/07/2023 10:1 9 AM FISH HATCHERY INSPECTOR 10/07/2023 9:09 PM FISH HATCHERY INSPECTOR us Laura Vaughn MD LAB BLOOD ORDERABLES Final Resul t [facility] [address] Department [place] [address] * Serum Hepatitis C ab (08/23/2013 3:19 PM FISH HATCHERY INSPECTOR) HCV ab Negative Negative HISTORICAL RESULTS Serum 08/23/2013 3:19 PM FISH HATCHERY INSPECTOR us Nikia Wild MD LAB BLOOD ORDERABLES Final Resu lt HISTORICAL RESULTS * COLONOSCOPY REPORT (12/15/2012) Anatomical Region Laterality Modality Other Narrative 12/15/2012 Ordered by an unspecified provider. Historical Provider GI PROCEDURE ORDERABLES F inal Result from Last 3 Months or Most Recently Relevant to Health Maintenance Insurance [employer] MEDICARE PPO [employer] MED[employer]ARE PPO [employer] CHOICE MEDICARE PPO Care Teams Director Sales Training Relationship Specialty Start Date End Date Rogelio Sanchez MD [address] [facility] [address] [place] [address] PCP - General Family Medicine 10/31/18
[2025-03-19 09:52] LABS: Hematocrit 44.1 % (42.0-52.0); Hemoglobin 14.9 g/dL (14.0-18.0); Immature Granulocyte Percent A 0.4 % (0-0.5); Lymphocytes Absolute Auto 3.11 K/mm3 (0.9-3.2); Mean Corpuscular HGB Conc 33.8 g/dl (32-36); Mean Corpuscular Hemoglobin 30.6 pg (26-34); Mean Corpuscular Volume 90.6 fl (80-100); Nucleated Red Blood Cells Absolute Auto 0.000 K/mm3 (0.0-0.012); Nucleated Red Blood Cells Perc 0.0 % (0.0-0.2); Platelet Count Result 166 k/mm3 (150-375); Red Blood Count 4.87 M/mm3 (4.6-6.20); White Blood Count 8.6 K/mm3 (4.5-10.0)
[2025-03-19 10:23] LABS: Alanine Aminotransferase 35 U/L (6-50); Albumin Level 4.4 g/dL (3.5-5.1); Alkaline Phosphatase 80 U/L (38-126); Anion Gap 13 mmol/L (4-12); Aspartate Amino Transferase 40 U/L (17-59); Bilirubin,Total 0.8 mg/dL (0.2-1.3); Blood Urea Nitrogen 23 mg/dL (9-20); Calcium 9.2 mg/dL (8.4-10.2); Carbon Dioxide 19 mmol/L (22-30); Chloride 108 mmol/L (98-107); Estimated Glomerular Filt Rate > 60; Glucose 203 mg/dL (65-110); Potassium 4.3 mmol/L (3.4-5.0); Sodium 140 mmol/L (137-145); Total Protein 8.0 g/dL (6.3-8.2)
== END 2025-03-19 08:41 | disposition home or self-care (01) ==
PROVIDERS: PCP Family Medicine; Visit Provider Physician Assistant
DX: R07.9 Chest pain, unspecified (principal); R06.02 Shortness of breath; R07.81 Pleurodynia; Z77.090 Contact with and (suspected) exposure to asbestos
CPT/HCPCS: 36415; 71046; 80053; 85025; 85380

== ENCOUNTER 2025-04-04 10:00 | Outpatient (CLI) | payer MEDICARE, SELFPAY ==
--- NOTE | ~2025-04-04 | XR_ITS ---
[id number] 04/04/2025 10:27 Indication: Cervicalgia Procedure: 3 view cervical spine Comparison: No prior studies for comparison. Findings: There is levoscoliosis. There is multilevel uncinate and facet hypertrophy. There is disc n arrowing and endplate hypertrophy at C5-6 and C6-7. No prevertebral soft tissue swelling. There is a prominent occipital protuberance. Lung apices are unremarkable. No acute fracture or traumatic malali gnment. Odontoid process is normal. Lateral masses normally aligned. Impression: 1: Moderate-severe cervical spondylosis. Reviewed, dictated and finalized at location A. Impression: 1: Moderate-severe cervical spondylosis.
--- NOTE | ~2025-04-04 | XR_ITS ---
XR thoracic spine 2V 04/04/2025 10:27 Indication: Cervicalgia and back pain Procedure: 3 views thoracic spine Comparison: No prior studies for comparison. Findings: There are prominent bridging osteophytes at all thoracic levels. Vertebral body heights are maintained. There is disc narrowing at multiple levels. Mildly accentuated thoracic kyphosis. No daniel dence for listhesis. No paraspinal soft tissue abnormality. No significant curvature of the spine. T1 not adequately visualized on lateral view. Impression: 1: Moderate thoracic spondylosis. Reviewed, dictated and finalized at location A. Impression: 1: Moderate thoracic spondylosis.
--- OUTSIDE RECORDS SUMMARY | 2025-04-04 10:26 | XMS_ITS | Referral Summary ---
Author Organization [facility] Address [address] [place] [address] Care Team Providers Care Acoustic Sensor Operator Name Role Phone Rogelio Sanchez MD Primary [...] 2-125 mg tablet Take by mouth Active prednisoLONE acetate (PRED FORTE) 1 % [...] injection Inject 68 Units under the skin covered button maker before breakfast 60 mL 3 11/10/19 25 [...] DAILY 360 capsule 3 02/22/20 25 Active Trulicity 1.5 mg/0.5 mL pen injector INJECT 1.5MG (1 PEN) UNDER THE SKIN EVERY WEEK 12 mL 3 04/04/20 25 Active Trulicity 1.5 mg/0.5 mL pen injector Inject 0.5 mL (1.5 mg total) under the skin once a week 6 mL 3 07/11/20 24 025 Discontinued Active Problems Problem Noted Date Diagnosed Date RAMOS (dyspnea on exertion) 10/14/2018 LAFB (left anterior fascicular block) 10/14/2018 LEI (obstructive sleep apnea) 10/14/2018 Hypertension associated with diabetes 10/14/2018 Assessment & Plan (10/23/2024 10:13 AM STEREOTYPE FINISHER): Chronic problem. Controlled on current Lisinopril 40mg daily, metoprolol XL 50mg daily, amlodipine 10mg daily. Assessment & Plan (04/20/2024 1:28 PM CDT): Chronic, stable. Continue current regimen including lisinopril. Update microalbumin Assessment & Plan (10/07/2023 1:03 PM STEREOTYPE FINISHER): Chronic, well-controlled Continue lisinopril Assessment & Plan (05/13/2023 10:48 AM CDT): Chronic problem. Controlled on current Lisinopril 40mg daily, metoprolol XL 50mg daily, amlodipine 10mg daily. Assessment & Plan (01/14/2023 5:02 PM CDT): Chronic, well-controlled Continue current medications including lisinopril Update GFR and MA Hyperlipidemia associated with type 2 diabetes m amadeoitus 10/14/2018 Assessment & Plan (10/23/2024 10:13 AM STEREOTYPE FINISHER): Chronic problem. Near goal on current Atorvastatin 40mg & Vascepa 2gm bid. Last lipid panel: 04/20/24 LDL=76, VH=397. Assessment & Plan (04/20/2024 1:23 PM CDT): Chronic, stable Continue Atorvastatin 40 mg daily Update lipid profile Assessment & Plan (10/07/2023 1:04 PM STEREOTYPE FINISHER): Chronic, well-controlled Continue statin therapy with atorvastatin Assessment & Plan (05/13/2023 10:49 AM CDT): Chronic problem. Near goal on current Atorvastatin 40mg. Last lipid panel: 01/14/23 LDL=81, PD=402. Assessment & Plan (01/14/2023 5:02 PM CDT): Chronic, well-controlled Update lipid profile Continue statin therapy with atorvastatin Essential hypertension 10/14/2018 Diabetes mellitus 09/22/2017 Assessment & Plan (10/23/2024 10:33 AM STEREOTYPE FINISHER): Chronic problem. A1c worsened from 7.0% 04/20/24 to now 7.6%. had been on oral steroids for several weeks. Current medications: Glipizide 5mg with breakfast & dinner Farxiga 10mg daily Trulicty 1.5mg weekly Lantus 68 units every morning UTD on labs. UTD on DM eye exam (03/02/23 no [facility] Retina [place]). Strive for regular exercise (30min most days) [...] discussed Assessment & Plan (10/07/2023 1:04 PM STEREOTYPE FINISHER): Hba1c was Lab Results Component Value Date [...] hypoglycemia Assessment & Plan (08/12/2022 9:11 AM STEREOTYPE FINISHER): Hba1c was Lab Results Component Value Date [...] diabetes Assessment & Plan (10/23/2024 10:13 AM STEREOTYPE FINISHER): Chronic problem. Currently taking Lyrica 75mg bid. Reviewed foot care; needs to lotion daily. Aware to check feet nightly, not to go barefoot. Assessment & Plan (04/20/2024 1:28 PM CDT): Chronic, stable Foot care discussed Prescription for Lyrica was sent Assessment & Plan (10/07/2023 1:05 PM STEREOTYPE FINISHER): Foot care discussed Will Lyrica Assessment & Plan (05/13/2023 11:00 AM CDT): Chronic problem. Gabapentin 300mg nightly. Not helping; will increase to 300mg after work/early evening & again at HS. Aware to check feet nightly; to not go barefoot. Assessment & Plan (08/12/2022 9:12 AM STEREOTYPE FINISHER): Foot care discussed Start Gabapentin, bedtime Resolved [...] on file Legal Sex Male 10:51 PM STEREOTYPE FINISHER Gender Identity Not on file Sexual Orientation Straight 04/20/2024 1: 08 PM CDT Last Filed Vital Signs Vital Sign Reading Time Taken Comments Blood Pressure 138/80 10/23/2024 9:57 AM STEREOTYPE FINISHER Pulse 76 10/23/2024 9:57 AM STEREOTYPE FINISHER Temperature - - Respiratory Rate 18 10/23/2024 9:57 AM STEREOTYPE FINISHER Oxygen Saturation 98% 04/20/2024 1:07 PM CDT Inhaled Oxygen Concentration - - Weight 102.1 kg (225 lb) 10/23/2024 9:57 AM STEREOTYPE FINISHER Height 182.9 cm (6' 0.01) 10/23/2024 9:57 AM CS T Body Mass Index 30.51 10/23/2024 9:57 AM STEREOTYPE FINISHER Plan of Treatment Not on file Procedures Procedure Name Priority Date/Time Associated Diagnosis Comments POCT HEMOGLOBIN A1C Routine 10/23/2024 1 0:00 AM STEREOTYPE FINISHER Type 2 diabetes mellitus with hyperglycemia, with long-term current use of insulin (HCC) HM DIABETES EYE EXAM Routine 10/03/2024 7:24 AM STEREOTYPE FINISHER LIPID PANEL Routine 04/20/2024 1:47 PM CDT Type 2 diabetes mellitus with hyperglycemia, with long-term current use of insulin (HCC) ALBUMIN CREATININE RATIO, URINE Routine 04/20/2024 1:47 PM CDT EGFR Routine 10/07/2023 10:19 AM STEREOTYPE FINISHER Type 2 diabetes mellitus with hyperglycemia, with long-term current use of insulin (HCC) SERUM HEPATITIS C AB Routine 08/23/2013 3:19 PM STEREOTYPE FINISHER COLONOSCOPY REPORT 12/15/2012 from Last 3 Months or Most Recently Relevant to Health Maintenance Results * (ABNORMAL) POCT hemoglobin A1c (10/23/2024 10:00 AM STEREOTYPE FINISHER) Hemoglobin A1C, POC 7.6 4.0 - 5.6 % Blood 10/23/2024 10:0 0 AM STEREOTYPE FINISHER Cyndy Moran NP POINT OF CARE TEST ORDERA BLES Final Result * HM DIABETES EYE EXAM (10/03/2024 7:24 AM STEREOTYPE FINISHER) Historical Provider HEALTH MAINTENANCE Final Result * [...] LAB URINE ORDERABLES Final Resul t [facility] [address] Department [place] [address] * (ABNORMAL) Lipid panel (04/20/2024 1:47 PM [...] LAB BLOOD ORDERABLES Final Resul t [facility] [address] Department [place] [address] * eGFR (10/07/2023 10:19 AM STEREOTYPE FINISHER) eGFR 82 mL/min/1. 73 m2 [facility] [...] reviewed 2021. Blood 10/07/2023 10:1 9 AM STEREOTYPE FINISHER 10/07/2023 9:09 PM STEREOTYPE FINISHER us Laura Vaughn MD LAB BLOOD ORDERABLES Final Resul t [facility] [address] Department [place] [address] * Serum Hepatitis C ab (08/23/2013 3:19 PM STEREOTYPE FINISHER) HCV ab Negative Negative HISTORICAL RESULTS Serum 08/23/2013 3:19 PM STEREOTYPE FINISHER us Nikia Wild MD LAB BLOOD ORDERABLES Final Resu lt HISTORICAL RESULTS * COLONOSCOPY REPORT (12/15/2012) Anatomical Region Laterality Modality Other Narrative 12/15/2012 Ordered by an unspecified provider. Historical Provider GI PROCEDURE ORDERABLES F inal Result from Last 3 Months or Most Recently Relevant to Health Maintenance Insurance [employer] MEDICARE PPO [employer] MEDIC[employer] PPO [employer] CHOICE MEDICARE PPO Care Teams Acoustic Sensor Operator Relationship Specialty Start Date End Date Rogelio Sanchez MD [address] [facility] [address] [place] [address] PCP - General Family Medicine 10/31/18
--- OUTSIDE RECORDS SUMMARY | 2025-04-04 10:26 | XMS_ITS | Clinical Summary ---
Author Organization [facility] Address [address] [place] [address] Care Team Providers Care Honing Job Setter Name Role Phone Rogelio Sanchez MD Primary Care Provider [phone] Source Comments [facility],non-owned Affiliates and Associated Physician Practices is amultiple site organization consisting of ambulatory clinics and hospital sitesin [place], [place], [place] and [place]. This disclosure is being madepursuant to the Care Everywhere program and may not contain all information available regarding this patient. Last updated 18.[facility] Allergies No known active allergies Medications * [...] Phone Billing Address Personal/Family [address] [place] [address] [facility] * Guarantor: SARAN PAZ Account Type Relation to Patient Date of Phone Billing Address Personal/Family [address] [place] [address] * Guarantor: SARAN PAZ Account Type Relation to Patient Date of Phone Billing Address Personal/Family [address] [place] [address] Care Teams Honing Job Setter Relationship Specialty Start Date End Date Rogelio Sanchez MD [address] [place] [address] PCP - General 11/26/21
--- OUTSIDE RECORDS SUMMARY | 2025-04-04 10:26 | XMS_ITS | Clinical Summary ---
Author Organization [facility] Address [address] [place] [address] Care Team Providers Care Sub Acute Care Nurse Name Role Phone Rogelio Sanchez MD Primary [...] injection Inject 68 Units under the skin senior treasury analyst before breakfast 60 mL 3 11/10/19 25 [...] 10/14/2018 Assessment & Plan (10/23/2024 10:13 AM ARTIFICIAL STONE SETTER): Chronic problem. Controlled on current Lisinopril 40mg daily, metoprolol XL 50mg daily, amlodipine 10mg daily. Assessment & Plan (04/20/2024 1:28 PM CDT): Chronic, stable. Continue current regimen including lisinopril. Update microalbumin Assessment & Plan (10/07/2023 1:03 PM ARTIFICIAL STONE SETTER): Chronic, well-controlled Continue lisinopril Assessment & Plan (05/13/2023 10:48 AM CDT): Chronic problem. Controlled on current Lisinopril 40mg daily, metoprolol XL 50mg daily, amlodipine 10mg daily. Assessment & Plan (01/14/2023 5:02 PM CDT): Chronic, well-controlled Continue current medications including lisinopril Update GFR and MA Hyperlipidemia associated with type 2 diabetes m amadeoitus 10/14/2018 Assessment & Plan (10/23/2024 10:13 AM ARTIFICIAL STONE SETTER): Chronic problem. Near goal on current Atorvastatin 40mg & Vascepa 2gm bid. Last lipid panel: 04/20/24 LDL=76, CU=587. Assessment & Plan (04/20/2024 1:23 PM CDT): Chronic, stable Continue Atorvastatin 40 mg daily Update lipid profile Assessment & Plan (10/07/2023 1:04 PM ARTIFICIAL STONE SETTER): Chronic, well-controlled Continue statin therapy with atorvastatin Assessment & Plan (05/13/2023 10:49 AM CDT): Chronic problem. Near goal on current Atorvastatin 40mg. Last lipid panel: 01/14/23 LDL=81, WA=477. Assessment & Plan (01/14/2023 5:02 PM CDT): Chronic, well-controlled Update lipid profile Continue statin therapy with atorvastatin Essential hypertension 10/14/2018 Diabetes mellitus 09/22/2017 Assessment & Plan (10/23/2024 10:33 AM ARTIFICIAL STONE SETTER): Chronic problem. A1c worsened from 7.0% 04/20/24 to now 7.6%. had been on oral steroids for several weeks. Current medications: Glipizide 5mg with breakfast & dinner Farxiga 10mg daily Trulicty 1.5mg weekly Lantus 68 units every morning UTD on labs. UTD on DM eye exam (03/02/23 no [facility] Retina [place]). Strive for regular exercise (30min most days) [...] discussed Assessment & Plan (10/07/2023 1:04 PM ARTIFICIAL STONE SETTER): Hba1c was Lab Results Component Value Date [...] hypoglycemia Assessment & Plan (08/12/2022 9:11 AM ARTIFICIAL STONE SETTER): Hba1c was Lab Results Component Value Date [...] diabetes Assessment & Plan (10/23/2024 10:13 AM ARTIFICIAL STONE SETTER): Chronic problem. Currently taking Lyrica 75mg bid. Reviewed foot care; needs to lotion daily. Aware to check feet nightly, not to go barefoot. Assessment & Plan (04/20/2024 1:28 PM CDT): Chronic, stable Foot care discussed Prescription for Lyrica was sent Assessment & Plan (10/07/2023 1:05 PM ARTIFICIAL STONE SETTER): Foot care discussed Will Lyrica Assessment & Plan (05/13/2023 11:00 AM CDT): Chronic problem. Gabapentin 300mg nightly. Not helping; will increase to 300mg after work/early evening & again at HS. Aware to check feet nightly; to not go barefoot. Assessment & Plan (08/12/2022 9:12 AM ARTIFICIAL STONE SETTER): Foot care discussed Start Gabapentin, bedtime Resolved [...] on file Legal Sex Male 10:51 PM ARTIFICIAL STONE SETTER Gender Identity Not on file Sexual Orientation Straight 04/20/2024 1: 08 PM CDT Obstetrics History Last Filed Vital Signs Vital Sign Reading Time Taken Comments Blood Pressure 138/80 10/23/2024 9:57 AM ARTIFICIAL STONE SETTER Pulse 76 10/23/2024 9:57 AM ARTIFICIAL STONE SETTER Temperature - - Respiratory Rate 18 10/23/2024 9:57 AM ARTIFICIAL STONE SETTER Oxygen Saturation 98% 04/20/2024 1:07 PM CDT Inhaled Oxygen Concentration - - Weight 102.1 kg (225 lb) 10/23/2024 9:57 AM ARTIFICIAL STONE SETTER Height 182.9 cm (6' 0.01) 10/23/2024 9:57 AM CS T Body Mass Index 30.51 10/23/2024 9:57 AM ARTIFICIAL STONE SETTER Plan of Treatment Health Maintenance Due Date [...] HEMOGLOBIN A1C Routine 10/23/2024 1 0:00 AM ARTIFICIAL STONE SETTER Type 2 diabetes mellitus with hyperglycemia, with long-term current use of insulin (HCC) HM DIABETES EYE EXAM Routine 10/03/2024 7:24 AM ARTIFICIAL STONE SETTER LIPID PANEL Routine 04/20/2024 1:47 PM CDT Type 2 diabetes mellitus with hyperglycemia, with long-term current use of insulin (HCC) ALBUMIN CREATININE RATIO, URINE Routine 04/20/2024 1:47 PM CDT EGFR Routine 10/07/2023 10:19 AM ARTIFICIAL STONE SETTER Type 2 diabetes mellitus with hyperglycemia, with long-term current use of insulin (HCC) SERUM HEPATITIS C AB Routine 08/23/2013 3:19 PM ARTIFICIAL STONE SETTER COLONOSCOPY REPORT 12/15/2012 from Last 3 Months or Most Recently Relevant to Health Maintenance Results * (ABNORMAL) POCT hemoglobin A1c (10/23/2024 10:00 AM ARTIFICIAL STONE SETTER) Hemoglobin A1C, POC 7.6 4.0 - 5.6 % Blood 10/23/2024 10:0 0 AM ARTIFICIAL STONE SETTER Cyndy Moran NP POINT OF CARE TEST ORDERA BLES Final Result * DIABETES EYE EXAM (10/03/2024 7:24 AM ARTIFICIAL STONE SETTER) Historical Provider HEALTH MAINTENANCE Final Result * [...] LAB URINE ORDERABLES Final Resul t [facility] [address] Department [place] [address] * (ABNORMAL) Lipid panel (04/20/2024 [...] LAB BLOOD ORDERABLES Final Resul t [facility] [address] [place] [address] * eGFR (10/07/2023 10:19 AM ARTIFICIAL STONE SETTER) eGFR 82 mL/min/1. 73 m2 [facility] [...] reviewed 2021. Blood 10/07/2023 10:1 9 AM ARTIFICIAL STONE SETTER 10/07/2023 9:09 PM ARTIFICIAL STONE SETTER us Laura Vaughn MD LAB BLOOD ORDERABLES Final Resul t [facility] [address] Department [place] [address] * Serum Hepatitis C ab (08/23/2013 3:19 PM ARTIFICIAL STONE SETTER) HCV ab Negative Negative HISTORICAL RESULTS Serum 08/23/2013 3:19 PM ARTIFICIAL STONE SETTER us Nikia Wild MD LAB BLOOD ORDERABLES Final Resu lt HISTORICAL RESULTS * COLONOSCOPY REPORT (12/15/2012) Anatomical Region Laterality Modality Other Narrative 12/15/2012 Ordered by an unspecified provider. Historical Provider GI PROCEDURE ORDERABLES F inal Result from Last 3 Months or Most Recently Relevant to Health Maintenance Insurance [employer] CHOICE MEDICARE PPO [employer] CHOICE MEDICARE PPO [employer] CHOICE MEDICARE PPO Care Teams Sub Acute Care Nurse Relationship Specialty Start Date End Date Rogelio Sanchez MD [address] [place] [address] PCP - General Family Medicine 10/31/18
== END 2025-04-04 10:01 | disposition home or self-care (01) ==
PROVIDERS: PCP Family Medicine
DX: M47.812 Spondylosis without myelopathy or radiculopathy, cervical region (principal); M47.814 Spondylosis without myelopathy or radiculopathy, thoracic region
CPT/HCPCS: 72040; 72070